=== PATIENT | male | born 1960 | race Caucasian/White ===

== ENCOUNTER 2020-08-16 06:24 | Outpatient (REF) | payer BC, SELFPAY ==
[2020-08-16 12:14] LABS: Prostate Specific Antigen 0.72 ng/mL (<0.05-4.0)
== END 2020-08-16 06:25 | disposition home or self-care (01) ==
LOC: HO.HMGCLDS 06:24
PROVIDERS: PCP Internal Medicine; Visit Provider Urology
DX: N32.0 Bladder-neck obstruction (principal)
CPT/HCPCS: 36415; 84153

== ENCOUNTER → 2020-08-22 09:03 | Outpatient (BNVA) | payer BC, SELFPAY | PROVIDERS: PCP Internal Medicine; Referring Provider Internal Medicine; Visit Provider Urology | DX: N40.1 Benign prostatic hyperplasia with lower urinary tract symptoms (principal); R35.1 Nocturia; N52.01 Erectile dysfunction due to arterial insufficiency; Z79.899 Other long term (current) drug therapy ==

== ENCOUNTER 2020-12-30 08:42 | Outpatient (REF) | payer BC, SELFPAY ==
[2020-12-30 11:11] LABS: Hemoglobin 14.6 g/dl (14.0-18.0); Mean Corpuscular HGB Conc 31.7 g/dl (31.0-36.0); Mean Corpuscular Hemoglobin 30.2 pg (27.0-33.0); Platelet Count 278 X10*3/uL (160-400); Red Blood Count 4.84 X10*6/uL (4.60-5.80); Red Cell Distribution Width 12.7 % (11.0-16.0); White Blood Count 6.8 X10*3/uL (4.8-10.8)
[2020-12-30 11:14] LABS: Glucose Urine UA NEG (NEG); Leukocyte Esterase Urine NEG (NEG); Nitrite Urine NEG (NEG); Specific Gravity - Urine 1.015 (1.005-1.025); Urine Blood NEG (NEG); Urine Ketones NEG (NEG); Urine Protein NEG (NEG-TRACE)
[2020-12-30 11:16] LABS: Appearance Urine CLEAR; Color Urine YELLOW
[2020-12-30 11:39] LABS: Alanine Aminotransferase 8 U/L (0-40); Albumin Level 4.4 g/dL (3.5-5.0); Alkaline Phosphatase 80 U/L (39-117); Anion Gap 11 (12-20); Aspartate Amino Transferase 18 U/L (5-37); Blood Urea Nitrogen 15 mg/dL (9-16); Calcium 9.3 mg/dL (8.4-10.2); Carbon Dioxide 30 mmol/L (22-29); Chloride 104 mmol/L (96-108); Cholesterol 145 mg/dL; Estimated Glomerular Filt Rate > 60; Glucose Fasting 88 mg/dL (60-99); HDL Cholesterol 56 mg/dL; LDL Cholesterol Calculated 82 mg/dl; Potassium 4.7 mmol/L (3.3-5.1); Sodium 140 mmol/L (135-145); Total Protein 6.8 g/dL (6.5-8.0); Triglycerides 39 mg/dL
== END 2020-12-30 08:43 | disposition home or self-care (01) ==
LOC: HO.HMGCLDS 08:42
PROVIDERS: PCP Internal Medicine; Visit Provider Internal Medicine
DX: I10 Essential (primary) hypertension (principal); E78.5 Hyperlipidemia, unspecified; N40.0 Benign prostatic hyperplasia without lower urinary tract symptoms; F17.210 Nicotine dependence, cigarettes, uncomplicated
CPT/HCPCS: 36415; 80053; 80061; 81003; 85027

== ENCOUNTER 2021-06-24 09:38 | Emergency (ER) | payer BC, SELFPAY ==
--- NOTE | ~2021-06-24 | XR_ITS ---
EXAMINATION: XR CHEST CLINICAL INFORMATION: Syncope. COMPARISON: None TECHNIQUE: Frontal view of the chest was obtained. FINDINGS: The lungs are well-expanded and clear. The heart size and pulmonary vascularity is normal. There is moderate spondylosis dorsal spine. No lytic process. XR/XR chest 1V IMPRESSION: Unremarkable chest examination.
--- NOTE | ~2021-06-24 | CT_ITS ---
EXAMINATION: CT HEAD WITHOUT CONTRAST CLINICAL INFORMATION: Dizziness. COMPARISON: None TECHNIQUE: Contiguous axial imaging was performed from the skull base to vertex without intravenous administration of contrast. This CT examination was performed using dose optimization techniques as appropriate, variously including the following: *Automated exposure control *Adjustment of mA and/or kV according to patient size (this includes techniques or standardized protocols for targeted exams where dose is matched to indication/reason for exam; i.e. extremities or head) *Use of iterative reconstruction technique DLP: 747 mGy-cm FINDINGS: There is no evidence of acute intracranial hemorrhage or territorial infarction. No abnormal mass effect or midline shift is seen. Owens to white matter differentiation is well preserved. No extra-axial fluid collections are identified. The ventricles are normal in size. There is no abnormal attenuation within the brain parenchyma. The osseous structures and soft tissues are normal. Diffuse partial opacification of the paranasal sinuses, likely representing chronic sinusitis. The mastoid air cells are clear. CT/CT head/brain wo con IMPRESSION: No acute intracranial hemorrhage or mass effect. Partial opacification of the paranasal sinuses, likely indicating a degree of chronic sinusitis.
--- NOTE | 2021-06-24 10:12 | ECG_ITS ---
Test Reason : DIZZINESS Blood Pressure : / mmHG Vent. Rate : 063 BPM Atrial Rate : 063 BPM P-R Int : 156 ms QRS Dur : 096 ms QT Int : 410 ms P-R-T Axes : 061 076 051 degrees QTc Int : 419 ms Normal sinus rhythm Normal ECG No previous ECGs available Referred By: Generic ED Physician Electronically Signed By:BERNADETTE RIOS MD
[2021-06-24 10:31] VITALS: BP 148/86; PULSE 63
[2021-06-24 10:32] VITALS: BP 144/84; PULSE 63
[2021-06-24 10:33] VITALS: BP 140/89; PULSE 72
[2021-06-24 11:22] VITALS: BP 128/81; PULSE 66; RESP 18; TEMP 35.5; O2SAT 99; BMI 26.6
[2021-06-24 15:46] LABS: Basophils Absolute Auto 0.1 X10*3/uL (0.0-0.2); Basophils Percent Auto 1.1 % (0-2); Eosinophils Absolute Auto 0.3 X10*3/uL (0.0-0.4); Eosinophils Percent Auto 5.2 % (0-4); Hematocrit 43.4 % (42-52); Hemoglobin 14.2 g/dl (14.0-18.0); Imm Gran Abs Auto 0.01 X10*3/uL (0.00-0.03); Imm Gran Pct Auto 0.2 % (0.0-0.4); Lymphocytes Absolute Auto 1.5 X10*3/uL (1.2-4.9); Lymphocytes Percent Auto 24.3 % (20-40); Mean Corpuscular HGB Conc 32.7 g/dl (31.0-36.0); Mean Corpuscular Hemoglobin 30.7 pg (27.0-33.0); Mean Corpuscular Volume 93.7 fL (80-98); Mean Platelet Volume 9.2 fL (9.4-12.4); Monocytes Absolute Auto 0.5 X10*3/uL (0.1-1.2); Monocytes Percent Auto 8.7 % (2-11); Neutrophils Absolute Auto 3.7 X10*3/uL (2.0-8.3); Neutrophils Percent Auto 60.5 % (45-73); Platelet Count 240 X10*3/uL (160-400); Red Blood Count 4.63 X10*6/uL (4.60-5.80); Red Cell Distribution Width 12.9 % (11.0-16.0); White Blood Count 6.1 X10*3/uL (4.8-10.8)
[2021-06-24 16:11] LABS: Troponin-I High Sensitivity < 3.5 ng/L (<3.5-35.0)
[2021-06-24 16:15] LABS: Anion Gap 9 (12-20); Blood Urea Nitrogen 9 mg/dL (9-16); Calcium 9.7 mg/dL (8.4-10.2); Carbon Dioxide 30 mmol/L (22-29); Chloride 107 mmol/L (96-108); Estimated Glomerular Filt Rate > 60; Glucose Random 97 mg/dL (60-115); Potassium 4.1 mmol/L (3.3-5.1); Sodium 142 mmol/L (135-145)
--- NOTE | 2021-06-24 16:41 | ED_ITS ---
HPI - General Adult General Chief complaint: General Medical Stated complaint: dizziness, lightheaded Time Seen by Provider: 06/24/21 16:05 Source: patient and family Mode of arrival: ambulatory Limitations: no limitations History of Present Illness HPI narrative: 61 yo Male with a past medical history of high cholesterol, high blood pressure, BPH here with complaints of dizziness since yesterday. Patient tells me that yesterday he bent down to pick something up and felt lightheaded like he was going to pass out. He sat up and felt improved. Patient then had an additional episode when he was bending down to get something in his dresser drawer and almost fell to the ground but caught himself. Today 2 more additional episodes 1 while showering and 1 while in the car. He describes dizziness as feeling lightheaded like he is going to pass out. He denies any associated chest pain, shortness of breath, neck pain, headache, fevers, chills. Patient tells me that he has not had any vomiting or diarrhea. He is tolerating p.o. with no difficulty. Related Data Previous Rx's Medication Instructions Recorded amlodipine 5 mg tablet 5 mg PO DAILY #90 tab 11/14/20 atorvastatin 20 mg tablet 20 mg PO BEDTIME #90 tab 11/14/20 benazepril 10 mg tablet 10 mg PO DAILY #90 tab 11/14/20 tamsulosin 0.4 mg capsule 0.4 mg PO DAILY 90 Days #90 cap 01/02/21 amoxicillin 875 mg-potassium 1 tab PO BID #14 tab 06/24/21 clavulanate 125 mg tablet (Augmentin) meclizine 25 mg tablet 25 mg PO TID PRN #10 tab 06/24/21 Allergies Allergy/AdvReac Type Severity Reaction Status Date / Time oxycodone [OXYCODONE] Allergy Severe SEVERE N/V Verified 12/31/20 11:32 Review of Systems Review of Systems: Yes all other systems are reviewed and are negative Constitutional: Constitutional: Reports no additional constitutional complaints, Denies body ache(s), Denies chills, Denies fever(s), Denies headache(s) and Denies weakness Eyes: Eyes: Reports no additional eye complaints and Denies change in vision ENT: Reports system reviewed and no additional complaints, except as documented, Reports dizziness, Denies headache(s), Denies nasal congestion, Denies nasal discharge and Denies neck pain Cardiovascular: Cardiovascular: Reports no additional cardiovascular complaints, Denies chest pain, Denies leg edema and Denies dyspnea Respiratory: Respiratory: Reports no additional respiratory complaints, Denies cough and Denies dyspnea Gastrointestinal: Gastrointestinal: Reports no additional gastrointestinal complaints, Denies abdominal pain, Denies diarrhea, Denies nausea and Denies vomiting Genitourinary: Genitourinary: Denies urinary incontinence Musculoskeletal: Musculoskeletal: Reports no additional musculoskeletal compla ints, Denies back pain, Denies arthralgias, Denies joint swelling, Denies neck pain, Denies numbness and Denies tingling Integumentary/Breasts: Skin/Breast: Reports system reviewed and no additional complaints, except as docu and Denies rash Neurologic: Reports system reviewed and no additional complaints, except as documented, Denies Abnormal speech present, Reports dizziness, Denies headache(s), Denies numbness, Denies tingling and Denies weakness PMFSH Past Medical History Attestation statement: The following information was validated with the patient. Source: old records reviewed and nursing notes reviewed Medical History Annual physical exam Colon polyps HTN (hypertension) Hyperlipidemia Umbilical hernia Surgical History H/O colonoscopy H/O nasal polypectomy History of tonsillectomy and adenoidectomy S/P hip replacement Family History Family History Father Leukemia Mother No problems noted. Brother No problems noted. Brother No problems noted. Sister No problems noted. Sister No problems noted. Social History Social History Household Members Other:: smokes 1/2 PPD Alcohol intake: current Alcohol intake frequency: a few times a week Advance Directives: Yes Advance Directives Information Provided: Yes Advance Directives on File: No Physical Exam Vital Signs: Vital Signs: Last Vital Signs Temp 97.6 F 06/24/21 16:49 Pulse 67 06/24/21 16:49 Resp 16 06/24/21 16:49 BP 124/82 06/24/21 16:49 Pulse Ox 98 06/24/21 16:49 Body Mass Index 26.6 Const: General: cooperative, healthy appearing, comfortable and no acute distress Orientation/consciousness: patient oriented x3 Limitations: no limitations HENMT: Head: Yes normal to inspection Ears: hearing grossly normal bilaterally General nose exam: Normal external nose present Face and sinus: Yes normal facial exam Mouth: Normal oral and palatal mucosa present Throat: Yes posterior oropharynx normal Eyes: General: appearance normal, both eyes and all related structures Pupils: Equal, round and reactive pupils present Neck: Neck: Yes normal visual inspection Chest: Chest palpation & inspection: normal inspection of the chest Resp: Effort & Inspection: normal respiratory effort Auscultation: clear to auscultation bilaterally Cardio: Rate: regular rate Rhythm: regular rhythm Peripheral pulses: Peripheral pulses 2+ throughout GI: Inspection: Yes normal to inspection Palpation (GI): Soft to palpation and nontender Auscultation: normal bowel sounds Back/Spine/Pelvis: Thoracic/Lumbar Spine: thoracic and lumbar spine normal to inspection Skin: General skin exam: no rashes or lesions noted Neuro: General: patient oriented x3, Normal light touch and pain sensation, no focal motor deficits and normal sensation to monofilament Cranial nerves: Yes CN's II-XII intact bilaterally, Yes Equal, round and reactive pupils present, Yes Bilaterally intact EOM present, Yes Nystagmus not present, Yes Normal facial strength present and Yes Midline tongue present Cognition (Neuro): normal cognition Speech: No Abnormal speech present Gait exam (Neuro): Normal gait present Motor exam (neuro): 5/5 motor strength present throughout Sensory Exam: Normal double simultaneous stimulation for sensation Deep tendon reflexes (DTR's): Right patellar reflex intensity grade: 2+ and Left patellar reflex intensity grade: 2+ Coordination: [id number] test normal, [id number] test normal and tandem gait normal Extrem: General: Yes normal to inspection, Yes no pedal edema and Yes no calf tenderness Course Course Course Narrative: 61-year-old male here with complaints of dizziness since yesterday with intermittent episodes of feeling lightheaded and weak. No other complaints. Dizziness is worsened with movement as well as movement of the head from right to left. Normal neurological exam. Hemodynamically stable. 1945-labs are unremarkable. Orthostatics show no acute finding. CT head and chest x-ray negative. EKG and troponin are unremarkable. There is concern for chronic pansinusitis on the CT scan. Patient is complainin g of some sinus pressure and pain. Will treat with course of antibiotics. Clinical exam in [facility] is more consistent with vertigo. Will send home with meclizine p.r.n... Reviewed worrisome signs and symptoms and when to return to the emergency department. Comfortable discharge home. Medical Decision Making MDM Narrative Medical decision making narrative: Less likely ICH versus CVA with normal CT scan and normal neurological exam Medical Records Medical records reviewed: Yes I reviewed the patient's medical records. Lab Data Lab results reviewed: Yes I reviewed the patient's lab results. Result diagrams: 06/24/21 15:37 06/24/21 15:37 Labs: Lab Results 06/24/21 06/24/21 06/24/21 Range/Units 15:37 15:37 15:37 WBC 6.1 (4.8-10.8) X10*3/uL RBC 4.63 (4.60-5.80) X10*6/uL Hgb 14.2 (14.0-18.0) g/dl Hct 43.4 (42-52) % MCV 93.7 (80-98) fL MCH 30.7 (27.0-33.0) pg MCHC 32.7 (31.0-36.0) g/dl RDW 12.9 (11.0-16.0) % Plt Count 240 (160-400) X10*3/uL MPV 9.2 L (9.4-12.4) fL Immature Gran % (Auto) 0.2 (0.0-0.4) % Neut % (Auto) 60.5 (45-73) % Lymph % (Auto) 24.3 (20-40) % Brewster % (Auto) 8.7 (2-11) % Eos % (Auto) 5.2 H (0-4) % Baso % (Auto) 1.1 (0-2) % Lymph # (Auto) 1.5 (1.2-4.9) X10*3/uL Brewster # (Auto) 0.5 (0.1-1.2) X10*3/uL Eos # (Auto) 0.3 (0.0-0.4) X10*3/uL Baso # (Auto) 0.1 (0.0-0.2) X10*3/uL Abs Immat Gran (auto) 0.01 (0.00-0.03) X10*3/uL Absolute Neuts (auto) 3.7 (2.0-8.3) X10*3/uL Absolute Nucleated RBC 0.000 (0.0-0.012) X10*3/uL Nucleated RBC % (auto) 0.0 (0.0-0.2) /100WBC Sodium 142 (135-145) mmol/L Potassium 4.1 (3.3-5.1) mmol/L Chloride 107 (96-108) mmol/L Carbon Dioxide 30 H (22-29) mmol/L Anion Gap 9 L (12-20) BUN 9 (9-16) mg/dL Creatinine 0.69 (0.5-1.4) mg/dL Estim Creat Clear Calc 129.0 Estimated GFR > 60 Random Glucose 97 (60-115) mg/dL Calcium 9.7 (8.4-10.2) mg/dL Magnesium 2.4 (1.6-2.6) mg/dL Total Bilirubin 1.0 (0.0-1.0) mg/dL Direct Bilirubin 0.4 (0.0-0.5) mg/dL AST 17 (5-37) U/L ALT 7 (0-40) U/L Alkaline Phosphatase 82 (39-117) U/L Troponin I High Sens < 3.5 (<3.5-35.0) ng/L Total Protein 7.2 (6.5-8.0) g/dL Albumin 4.7 (3.5-5.0) g/dL Coronavirus (PCR) (Negative) Influenza Type A (PCR) (Negative) Influenza Type B (PCR) (Negative) RSV RNA Qual (PCR) (Negative) 06/24/21 Range/Units 16:48 WBC (4.8-10.8) X10*3/uL RBC (4.60-5.80) X10*6/uL Hgb (14.0-18.0) g/dl Hct (42-52) % MCV (80-98) fL MCH (27.0-33.0) pg MCHC (31.0-36.0) g/dl RDW (11.0-16.0) % Plt Count (160-400) X10*3/uL MPV (9.4-12.4) fL Immature Gran % (Auto) (0.0-0.4) % Neut % (Auto) (45-73) % Lymph % (Auto) (20-40) % Brewster % (Auto) (2-11) % Eos % (Auto) (0-4) % Baso % (Auto) (0-2) % Lymph # (Auto) (1.2-4.9) X10*3/uL Brewster # (Auto) (0.1-1.2) X10*3/uL Eos # (Auto) (0.0-0.4) X10*3/uL Baso # (Auto) (0.0-0.2) X10*3/uL Abs Immat Gran (auto) (0.00-0.03) X10*3/uL Absolute Neuts (auto) (2.0-8.3) X10*3/uL Absolute Nucleated RBC (0.0-0.012) X10*3/uL Nucleated RBC % (auto) (0.0-0.2) /100WBC Sodium (135-145) mmol/L Potassium (3.3-5.1) mmol/L Chloride (96-108) mmol/L Carbon Dioxide (22-29) mmol/L Anion Gap (12-20) BUN (9-16) mg/dL Creatinine (0.5-1.4) mg/dL Estim Creat Clear Calc Estimated GFR Random Glucose (60-115) mg/dL Calcium (8.4-10.2) mg/dL Magnesium (1.6-2.6) mg/dL Total Bilirubin (0.0-1.0) mg/dL Direct Bilirubin (0.0-0.5) mg/dL AST (5-37) U/L ALT (0-40) U/L Alkaline Phosphatase (39-117) U/L Troponin I High Sens (<3.5-35.0) ng/L Total Protein (6.5-8.0) g/dL Albumin (3.5-5.0) g/dL Coronavirus (PCR) NEGATIVE (Negative) Influenza Type A (PCR) NEGATIVE (Negative) Influenza Type B (PCR) NEGATIVE (Negative) RSV RNA Qual (PCR) NEGATIVE (Negative) Imaging Data Chest x-ray: Attestation: I personally reviewed and interpreted this imaging study as follows: Radiologist's impression: EXAMINATION: XR CHEST CLINICAL INFORMATION: Syncope. COMPARISON: None TECHNIQUE: Frontal view of the chest was obtained. FINDINGS: The lungs are well-expanded and clear. The heart size and pulmonary vascularity is normal. There is moderate spondylosis dorsal spine. No lytic process. XR/XR chest 1V IMPRESSION: Unremarkable chest examination. ? CT scan - head: Attestation: I personally reviewed and interpreted this imaging study as follows: Radiologist's impression: FINDINGS: There is no evidence of acute intracranial hemorrhage or territorial infarction. No abnormal mass effect or midline shift is seen. Owens to white matter differentiation is well preserved. No extra-axial fluid collections are identified. The ventricles are normal in size. There is no abnormal attenuation within the brain parenchyma. The osseous structures and soft tissues are normal. Diffuse partial opacification of the paranasal sinuses, likely representing chronic sinusitis. The mastoid air cells are clear. ? CT/CT head/brain wo con IMPRESSION: No acute intracranial hemorrhage or mass effect. ? Partial opacification of the paranasal sinuses, likely indicating a degree of chronic sinusitis. ECG Data Attestation: I personally reviewed and interpreted this ECG as follows: Interpretation: Normal sinus rhythm with a rate of 63, normal GA, normal QRS, normal QT Discharge Plan Discharge Clinical Impression: Vertigo, Sinusitis Patient Disposition: Home, Self-Care Instructions: Sinusitis (ED), Vertigo (ED) Additional Instructions: This is caused by an inner ear imbalance We are giving you medications to help with the symptoms Follow-up with primary care doctor. Physical therapy may be helpful Prescriptions: New meclizine 25 mg tablet 25 mg PO TID PRN (Reason: dizziness) Qty: 10 RF: 0 amoxicillin-pot clavulanate [Augmentin] 875-125 mg tablet 1 tab PO BID Qty: 14 RF: 0 No Action atorvastatin 20 mg tablet 20 mg PO BEDTIME Qty: 90 RF: 3 amlodipine 5 mg tablet 5 mg PO DAILY Qty: 90 RF: 3 benazepril 10 mg tablet 10 mg PO DAILY Qty: 90 RF: 3 tamsulosin 0.4 mg capsule 0.4 mg PO DAILY 90 Days Qty: 90 RF: 3 Referrals: Physician,Unknown [Primary Care Provider] - 2 days Interventions: ED Discharge Assessment Last Done: 06/24/21 19:11
[2021-06-24 16:45] LABS: Alanine Aminotransferase 7 U/L (0-40); Albumin Level 4.7 g/dL (3.5-5.0); Alkaline Phosphatase 82 U/L (39-117); Aspartate Amino Transferase 17 U/L (5-37); Bilirubin Direct 0.4 mg/dL (0.0-0.5); Magnesium 2.4 mg/dL (1.6-2.6); Total Protein 7.2 g/dL (6.5-8.0)
[2021-06-24 16:49] VITALS: BP 124/82; PULSE 67; RESP 16; TEMP 36.4; O2SAT 98
--- NOTE | 2021-06-24 16:51 | PC.NURSE ---
Labs obtained. Pt awaiting brain CT at this time. Pt appears well.
[2021-06-24 17:36] LABS: Influenza A PCR NEGATIVE (Negative); Influenza B PCR NEGATIVE (Negative); Resp Syncy Virus RNA Qual PCR NEGATIVE (Negative); SARS COV2 PCR INHOUSE NEGATIVE (Negative)
== END 2021-06-24 19:11 | disposition home or self-care (01) ==
PROVIDERS: Nurse Practitioner Family; Emergency Provider Emergency Medicine Emergency Medical Services
DX: R42 Dizziness and giddiness (principal); J32.9 Chronic sinusitis, unspecified; I10 Essential (primary) hypertension; Z20.822 Contact with and (suspected) exposure to COVID-19
CPT/HCPCS: 0241U; 36415; 70450; 71045; 80048; 80076; 83735; 84484; 85025; 93005; 99284

== ENCOUNTER 2021-08-09 08:53 | Outpatient (REF) | payer BC, SELFPAY ==
[2021-08-09 10:28] LABS: Prostate Specific Antigen 0.86 ng/mL (<0.05-4.0)
== END 2021-08-09 08:54 | disposition home or self-care (01) ==
LOC: HO.LAB 08:53
PROVIDERS: PCP Internal Medicine; Visit Provider Urology
DX: Z12.5 Encounter for screening for malignant neoplasm of prostate (principal); N40.1 Benign prostatic hyperplasia with lower urinary tract symptoms; R35.1 Nocturia
CPT/HCPCS: 36415; 84153

== ENCOUNTER → 2021-08-19 08:47 | Outpatient (BNVA) | payer BC, SELFPAY | PROVIDERS: Visit Provider Urology | DX: N40.1 Benign prostatic hyperplasia with lower urinary tract symptoms (principal); R35.1 Nocturia; N52.01 Erectile dysfunction due to arterial insufficiency ==

== ENCOUNTER 2021-12-26 05:59 | Outpatient (REF) | payer BC, SELFPAY ==
[2021-12-26 11:27] LABS: Hematocrit 45.5 % (42.0-52.0); Hemoglobin 14.3 g/dl (14.0-18.0); Mean Corpuscular HGB Conc 31.4 g/dl (31.0-36.0); Mean Corpuscular Hemoglobin 29.8 pg (27.0-33.0); Mean Corpuscular Volume 94.8 fL (80.0-98.0); Mean Platelet Volume 9.9 fL (9.4-12.4); Platelet Count 258 X10*3/uL (160-400); Red Cell Distribution Width 12.7 % (11.0-16.0); White Blood Count 4.9 X10*3/uL (4.8-10.8)
[2021-12-26 11:42] LABS: Appearance Urine CLEAR; Color Urine YELLOW; Glucose Urine UA NEG (NEG); Leukocyte Esterase Urine NEG (NEG); Nitrite Urine NEG (NEG); Specific Gravity - Urine 1.015 (1.005-1.025); Urine Blood NEG (NEG); Urine Ketones NEG (NEG); Urine Protein NEG (NEG-TRACE)
[2021-12-26 11:51] LABS: Alanine Aminotransferase 7 U/L (0-40); Albumin Level 4.4 g/dL (3.5-5.0); Alkaline Phosphatase 78 U/L (39-117); Anion Gap 13 (12-20); Aspartate Amino Transferase 21 U/L (5-37); Bilirubin Total 0.9 mg/dL (0.0-1.0); Blood Urea Nitrogen 10 mg/dL (9-16); Calcium 9.7 mg/dL (8.4-10.2); Carbon Dioxide 28 mmol/L (22-29); Chloride 104 mmol/L (96-108); Cholesterol 145 mg/dL; Estimated Glomerular Filt Rate > 60; Glucose Fasting 106 mg/dL (60-99); HDL Cholesterol 49 mg/dL; LDL Cholesterol Calculated 82 mg/dl; Potassium 4.7 mmol/L (3.3-5.1); Sodium 140 mmol/L (135-145); Triglycerides 71 mg/dL
[2021-12-26 12:15] LABS: WBC Urine 0-2 /HPF (0-4)
[2021-12-26 12:16] LABS: RBC Urine 0 /HPF (0)
== END 2021-12-26 06:00 | disposition home or self-care (01) ==
LOC: HO.HMGCLDS 05:59
PROVIDERS: Visit Provider Internal Medicine
DX: Z00.00 Encounter for general adult medical examination without abnormal findings (principal); I10 Essential (primary) hypertension; E78.5 Hyperlipidemia, unspecified
CPT/HCPCS: 36415; 80053; 80061; 81001; 85027

== ENCOUNTER 2022-03-06 15:34 | Outpatient (REF) | payer BC, SELFPAY ==
--- NOTE | ~2022-03-06 | CT_ITS ---
EXAMINATION: CT CHEST SCREENING CLINICAL INFORMATION: 40 yr pack smoking history. COMPARISON: Chest x-ray 06/24/2021 TECHNIQUE: Multidetector volumetric CT imaging of the chest is performed without contrast using low dose technique. Additional 2D coronal and sagittal reformatted images and axial 3D maximum intensity projection (MIP) images are generated on the CT workstation. This CT examination was performed using dose optimization techniques as appropriate, variously including the following: *Automated exposure control *Adjustment of mA and/or kV according to patient size (this includes techniques or standardized protocols for targeted exams where dose is matched to indication/reason for exam; i.e. extremities or head) *Use of iterative reconstruction technique DLP: 66 mGy-cm FINDINGS: LUNGS: The lungs are hyperinflated without acute pneumonic consolidation. There is a large right parahilar nodule lower lobe measuring 2.1 x 1.9 cm on axial image 226/6. There are 2 mm subpleural nodules or densities in left lower lobe axial image 226/6, right lower lobe anterolateral basal segment image 268/6, 4 mm right major fissure nodule likely lymph node axial image 253/6, 2 mm nodule right upper lobe axial image 142/6,. MEDIASTINUM: The thyroid lobes are asymmetrical but otherwise normal. The central trachea and the bronchi are normal. The heart size is normal. There is aneurysmal dilatation of ascending aorta measuring 4.9 x 4.8 cm axial image 35/3. There is moderate coronary artery calcifications. No abnormal size mediastinal lymph nodes are stable mass seen. No pericardial effusion. PLEURA: There is no pleural effusion. No pleural mass or thickening. AXILLA: Small shotty lymph nodes in the left axilla measuring 1.2 x 0.4 cm UPPER ABDOMEN: Visualized liver, spleen and gallbladder is unremarkable. OSSEOUS STRUCTURES: Bone windows reveal moderate ventral spondylosis and bridging osteophytes dorsal spine. No lytic or sclerotic process seen. CT/CT lung screening IMPRESSION: Hyperinflated lungs with very suspicious right lower lobe nodule measuring 2.1 cm. Recommend PET/CT and a follow-up CT chest in 3 months. There are additional small subpleural 2 nodules. No abnormal mediastinal adenopathy seen. Results were called by PSA to the referring physician at 9:04 AM on 03/09/2022. ASSESSMENT: Lung-RADS category 4A RECOMMENDATION: PET/CT and low dose [address] follow-up
== END 2022-03-06 15:35 | disposition home or self-care (01) ==
LOC: HO.CT 15:34
PROVIDERS: Visit Provider Physician Assistant Medical
DX: Z12.2 Encounter for screening for malignant neoplasm of respiratory organs (principal); F17.210 Nicotine dependence, cigarettes, uncomplicated
CPT/HCPCS: 71271; G0296

== ENCOUNTER 2022-03-18 09:34 | Day surgery (SDC) | payer BC, SELFPAY ==
--- NOTE | 2022-03-17 09:37 | P.CONAN_ITS ---
Documented by User: Radha Rivera NP 03/17/22 09:39 HPI - Anesthesia Eval Consult details Narrative: 62yo M for Bronchoscopy Fiberoptic PMFSH Active Problems Active Problems: All Active Problems (Updated 03/06/22 @ 12:19 by Carmelita Baeza PA-C) Personal history of nicotine dependence (Acute) HTN (hypertension) (Acute) Hyperlipidemia (Acute) Erectile dysfunction due to arterial insufficiency (Acute) BPH associated with nocturia (Acute) Glaucoma (Acute) Left shoulder tendinitis (Acute) Past Medical History Medical History Glaucoma HTN (hypertension) Hyperlipidemia Left shoulder tendinitis Personal history of nicotine dependence Tubular adenoma of colon (~2018) Umbilical hernia Family History Family History Father Leukemia Mother No problems noted. Brother No problems noted. Brother No problems noted. Sister No problems noted. Sister No problems noted. Surgical History Surgical History History of colonoscopy (~2019) History of left hip replacement (~2015) History of nasal polypectomy (~2005) History of tonsillectomy and adenoidectomy Social History Social History Household Members Other:: smokes 1/2 PPD [facility] Alcohol intake: current Alcohol intake frequency: a few times a week Patient Tobacco Use Status: Current someday Tobacco user Tobacco use type: Cigarette Cigarettes Per Day: 10 Years Smoked: 40 Smoked in Last 30 Days: Yes e-Cigarette/Vaping Use: Never Used Use of substances other than those prescribed or required for medical reasons: No Are you DNR?: No Advance Directives: No Advance Directives Information Provided: Yes service: No Current occupational status: employed Current occupational exposures/hazards: No Cognitive needs: No Hearing needs: No Vision needs: No Meds Allergies Allergy/AdvReac Type Severity Reaction Status Date / Time oxycodone [OXYCODONE] Allergy Severe SEVERE N/V Verified 01/05/22 08:23 Exam Exam Date and Time: March 17, 2022 0937 Pertinent Lab Results Pertinent Lab Results: Laboratory Tests 12/26/21 12/26/21 06:03 06:03 WBC 4.9 Hgb 14.3 Hct 45.5 Plt Count 258 Sodium 140 Potassium 4.7 Chloride 104 Carbon Dioxide 28 BUN 10 Creatinine 0.72 Assessment and Plan Assessment Anesthesia Assessment: Chart Reviewed Documented by User: Jesica Barber MD 03/18/22 10:59 [facility] Past Medical History Medical History Glaucoma HTN (hypertension) Hyperlipidemia Left shoulder tendinitis Personal history of nicotine dependence Tubular adenoma of colon (~2018) Umbilical hernia Family History Family History Father Leukemia Mother No problems noted. Brother No problems noted. Brother No problems noted. Sister No problems noted. Sister No problems noted. Surgical History Surgical History History of colonoscopy (~2019) History of left hip replacement (~2015) History of nasal polypectomy (~2005) History of tonsillectomy and adenoidectomy History of Problems with Anesthesia: No Social History Social History Household Members Other:: smokes 1/2 PPD Housing: Condominium Alcohol intake: current Alcohol intake frequency: a few times a week Patient Tobacco Use Status: Current someday Tobacco user Tobacco use type: Cigarette Cigarettes Per Day: 10 Years Smoked: 40 Smoked in Last 30 Days: Yes e-Cigarette/Vaping Use: Never Used Use of substances other than those prescribed or required for medical reasons: No Are you DNR?: No Advance Directives: No Advance Directives Information Provided: Yes service: No Current occupational status: employed Current occupational exposures/hazards: No Cognitive needs: No Hearing needs: No Vision needs: No Meds Allergies Allergy/AdvReac Type Severity Reaction Status Date / Time oxycodone [OXYCODONE] Allergy Severe SEVERE N/V Verified 01/05/22 08:23 Exam Airway Mallampati Class: II TM Dist: >3cm Neck ROM: Full Loose/Missing/Broken Teeth: No Heart: RRR Lungs: CTA Assessment and Plan Assessment Anesthesia Assessment: Anesthesia Plan Discussed Final Anesthetic Review History of Problems with Anesthesia: No NPO: Yes ASA Class: II Final Preanesthetic Review: Meds/Allgs Chart Reviewed, Consent Obtained/Reviewed and Anes Risks/Benef Reviewed Patient Risk: Low Procedure Risk: Low Anesthetic Plan Anesthetic Plan: GA Disposition: Standard PACU
--- NOTE | ~2022-03-18 | XR_ITS ---
EXAMINATION: XR CHEST CLINICAL INFORMATION: Lung biopsies. COMPARISON: Chest radiograph dated 06/24/2021, chest CT dated 03/06/2022. TECHNIQUE: Frontal view of the chest was obtained. FINDINGS: An ovoid nodule overlies the right perihilar region with adjacent linear opacity. The right upper lung field and left lung are clear. No overt pneumothorax. The heart and mediastinal structures are unremarkable. XR/XR chest 1V IMPRESSION: Known right lung nodule with probable adjacent atelectasis/scarring status post biopsy. No overt pneumothorax.
[2022-03-18 10:29] VITALS: BP 111/72; PULSE 63; RESP 16; TEMP 37; O2SAT 98; BMI 26.6
[2022-03-18] MEDS: Lactated Ringers 1,000 ML 100 ML IVCONT (11:01)
--- NOTE | 2022-03-18 11:25 | MHC.SHP ---
Pre-Procedural Eval Section A Date of Service: 03/18/22 Changes since office visit: No Cold of Flu in the past 2 weeks, No New Medical Problems, No Changes in Medication and No Patient answered all questions Section B Chief Complaint: pulmonary nodule Details of Present Illness: 62 y/o man with tob dependedncy asymptomatic. HAd LDCT scan demonstrating RLL nodule. Here for bronchoscopy Relevant Family History (Specify if Yes): Yes Relevant Social History: Tobacco Use Present Medications: see Short Stay Collaborative assessment Medical History: No relevant PMH Allergies: Allergies Allergy/AdvReac Type Severity Reaction Status Date / Time oxycodone [OXYCODONE] Allergy Severe SEVERE N/V Verified 01/05/22 08:23 Review of Systems Sugical H&P ROS: Negative: Constitution, Cardiovascular, Respiratory, Neurological, Psychiatric, Hem-Onc, Allergic/Immunologic, Gastrointestinal, Genitourinary, Musculoskeletal, Integumentary and Endocrine Exam Surgical H&P Exam: Normal: HEENT, Normal: Heart, Normal: Lungs, Normal: Extremities, Normal: Abdomen, Normal: Skin and Normal: Neurological Plan Diagnosis/Plan: Change (pulmonary nodule, plan for bronchoscopy) I have reviewed the history and physical and performed a pertinent physical examination on my patient. No changes have occurred unless specified.
[2022-03-18 12:49] VITALS: BP 110/60; PULSE 77; RESP 16; TEMP 36.2; O2SAT 98
[2022-03-18 12:54] VITALS: BP 115/63; PULSE 78; RESP 18; O2SAT 98
[2022-03-18 12:59] VITALS: BP 108/65; PULSE 64; RESP 18; O2SAT 98
[2022-03-18 13:04] VITALS: BP 114/64; PULSE 73; RESP 18; O2SAT 98
[2022-03-18 13:15] VITALS: BP 109/66; PULSE 66; RESP 18; O2SAT 96
--- NOTE | 2022-03-19 08:25 | P.BOP_ITS ---
Brief Operative Note Date of Service: 03/19/22 Pre-op diagnosis: pulmonary nodule Post-op diagnosis: same Procedure: Bronchoscopy with transbronchial biopsies and brushings and washings Implants: Surgeon: Nam Wyatt MD Anesthesia: GETA Was an Quick Print Operator used for this Procedure?: No Estimated blood loss (mL): 1 Pathology: other (RLL transbronchial biopsies) Condition: stable Disposition: same day
--- NOTE | 2022-03-19 20:31 | OP_ITS ---
SURGEON: Nam Wyatt MD PREOPERATIVE DIAGNOSIS: Pulmonary nodule. POSTOPERATIVE DIAGNOSIS: Pulmonary nodule in addition to bronchitis. PROCEDURE PERFORMED: Bronchoscopy. ESTIMATED BLOOD LOSS: COMPLICATIONS: ANESTHESIA: General endotracheal anesthesia provided. ASSISTANTS: SPECIMENS: DESCRIPTION OF PROCEDURE: After the patient was adequately sedated, a flexible digital bronchoscope was inserted over ET tube to level of the trachea. Tracheal mucosa appeared to be normal. Normal splaying of the main adarsh. The patient did have moderate amount of mucoid secretions. After instilling 3 mL of 2% lidocaine, the bronchoscope was navigated through the entire tracheobronchial tree, which was examined up to the subsegmental level. The patient had evidence of chronic airway disease with diverticula, likely from his ongoing smoking, and has significant mucus plugging with yellowish mucoid secretions that were plugging some of the airways, primarily at the bases. Some evidence of bronchomalacia was also noted in the superior segment of the right lower lobe. There was a vascular looking area, smooth surfaces, which appears to correspond to the findings on the CAT scan. Using a brush, it was introduced into the area and when the brushing was happening, serosanguineous fluid did come out of the area, almost like emptying of a cyst or a small abscess. The cytology brush was sent to the Cytology Department. Normal saline and iced saline were used for hemostasis. Due to the vascular nature of the lesion, a half ampule of epinephrine was introduced, mixed in with saline into the superior segment, and then after that, transbronchial biopsies were collected from the site and sent to Pathology. Multiple specimens were collected. The patient did have some additional bleeding, minimal, and the rest of the epinephrine ampule was used for a total of 1 ampule for the whole procedure, and again iced saline was also used for hemostasis as well. At the end of procedure, patient was no longer bleeding. The bronchoscope was then removed. The total endoscopic time approximately about 25 minutes. Patient tolerated procedure well. Vital signs were stable throughout the procedure and he did have a chest x-ray afterwards that was without any pneumothoraces. IMPRESSION: 1. Transbronchial biopsies from the right lower lobe pulmonary nodule. 2. Cytologic brush into the right lower lobe, superior segment. 3. Bilateral lung washings for Cytology, Gram stain, culture, and for chest x-ray are without any complications. Nam Wyatt MD MR/NATALEE / [id number]
== END 2022-03-18 13:12 | disposition home or self-care (01) ==
PROVIDERS: PCP Internal Medicine; Visit Provider Hospitalist
PROC: 0BJ08ZZ Inspection of Tracheobronchial Tree, Via Natural or Artificial Opening Endoscopic (ICD-10-PCS; CPT 31622; principal; 2022-03-18 11:30)
DX: R91.1 Solitary pulmonary nodule (principal); J40 Bronchitis, not specified as acute or chronic; J98.09 Other diseases of bronchus, not elsewhere classified; I10 Essential (primary) hypertension; E78.5 Hyperlipidemia, unspecified; F17.210 Nicotine dependence, cigarettes, uncomplicated; F12.90 Cannabis use, unspecified, uncomplicated; Z96.642 Presence of left artificial hip joint; Z98.890 Other specified postprocedural states
CPT/HCPCS: 31628; 31623; 71045; 87071; 87205; 88112; 88305; 88341; 88342; 88360; J0171; J1100; J2250; J2405; J3010

== ENCOUNTER 2022-04-01 09:52 | Outpatient (REF) | payer BC, SELFPAY ==
--- NOTE | 2022-04-01 17:25 | PFT_ITS ---
INDICATION: Pulmonary nodule. SPIROMETRY: FEV1 to FVC 79% with an FEV1 of 4.6 L, which is 114% predicted and FVC of 5.8 L, which is 108% predicted. No significant response to bronchodilators noted. Maximum voluntary ventilation 95% predicted. LUNG VOLUMES: Total lung capacity 103% predicted. DIFFUSION CAPACITY: DLCO 87% predicted. COMPARISONS: None. Flow volume loop was perfect. Normal lung mechanics. INTERPRETATION: No obstructive nor restrictive ventilatory defects identified. No significant response to bronchodilators noted. Normal maximum voluntary ventilation. Normal lung volumes and normal diffusion capacity. This is consistent with normal lung mechanics. Clinical correlation warranted. Nam Wyatt MD MR/MODL / [id number]
== END 2022-04-01 09:53 | disposition home or self-care (01) ==
LOC: HO.RESP 09:52
PROVIDERS: PCP Internal Medicine; Visit Provider Surgery
DX: Z01.818 Encounter for other preprocedural examination (principal); R91.8 Other nonspecific abnormal finding of lung field; F17.200 Nicotine dependence, unspecified, uncomplicated
CPT/HCPCS: 94060; 94727; 94729

== ENCOUNTER → 2022-04-03 09:13 | Outpatient (BNVA) | payer BC, SELFPAY | PROVIDERS: PCP Internal Medicine; Visit Provider Surgery | DX: R91.1 Solitary pulmonary nodule (principal); D3A.090 Benign carcinoid tumor of the bronchus and lung; Z87.891 Personal history of nicotine dependence | CPT/HCPCS: 99202 ==

== ENCOUNTER 2022-08-08 09:19 | Outpatient (REF) | payer BC, SELFPAY ==
[2022-08-08 10:34] LABS: Prostate Specific Antigen 0.75 ng/mL (<0.05-4.0)
== END 2022-08-08 09:20 | disposition home or self-care (01) ==
LOC: HO.LAB 09:19
PROVIDERS: PCP Internal Medicine; Visit Provider Urology
DX: N40.1 Benign prostatic hyperplasia with lower urinary tract symptoms (principal); R35.1 Nocturia; Z12.5 Encounter for screening for malignant neoplasm of prostate
CPT/HCPCS: 36415; 84153

== ENCOUNTER 2022-11-03 07:21 | Outpatient (REF) | payer BC, SELFPAY ==
--- NOTE | ~2022-11-03 | CT_ITS ---
EXAMINATION: CT CHEST WITHOUT CONTRAST CLINICAL INFORMATION: Benign carcinoid tumor of the bronchus and lung. COMPARISON: 03/06/2022 TECHNIQUE: Multidetector volumetric CT imaging of the chest was done. Axial MIP volume rendering provided. Sagittal and coronal reformatted images were obtained. This CT examination was performed using dose optimization techniques as appropriate, variously including the following: *Automated exposure control *Adjustment of mA and/or kV according to patient size (this includes techniques or standardized protocols for targeted exams where dose is matched to indication/reason for exam; i.e. extremities or head) *Use of iterative reconstruction technique DLP: 217 mGy-cm FINDINGS: LUNGS: The central airways are patent with minimal internal secretions. Postsurgical changes of the bronchus intermedius with some narrowing at that location and suture line seen. The appearance suggests right lower lobectomy. Mild paraseptal and centrilobular emphysema with apical predominance. Mild subpleural reticulation present. No honeycombing. No pneumothorax. The previous right lower lobe nodule has been resected. Subpleural 0.2 cm left lower lobe nodule on series 7 image 301 is unchanged. No new pulmonary nodules. MEDIASTINUM: Normal heart size. No pericardial effusion. No mediastinal lymphadenopathy. The visualized thyroid gland is unremarkable CORONARY ARTERY CALCIFICATION: Severe . PLEURA: There is no pleural effusion. Right basilar pleural thickening.. AXILLA: No lymphadenopathy. UPPER ABDOMEN: No suspicious findings. Simple cyst anteriorly in the left hepatic lobe. OSSEOUS STRUCTURES: No acute or suspicious osseous abnormality. Diffuse endplate osteophytes, some of which are bridging. CT/CT chest wo IV con IMPRESSION: Postsurgical changes of right lower lobectomy. No suspicious pulmonary nodules. Mild emphysema. Fleischner guidelines were followed.
== END 2022-11-03 07:22 | disposition home or self-care (01) ==
LOC: HO.CT 07:21
PROVIDERS: PCP Internal Medicine; Visit Provider Surgery
DX: D3A.090 Benign carcinoid tumor of the bronchus and lung (principal)
CPT/HCPCS: 71250

== ENCOUNTER → 2022-11-27 09:38 | Outpatient (BNVA) | payer BC, SELFPAY | PROVIDERS: PCP Internal Medicine; Visit Provider Surgery | DX: D3A.090 Benign carcinoid tumor of the bronchus and lung (principal) | CPT/HCPCS: 99212 ==

== ENCOUNTER 2022-12-30 06:04 | Outpatient (REF) | payer BC, SELFPAY ==
[2022-12-30 11:30] LABS: Appearance Urine Clear; Color Urine Yellow; Glucose Urine UA Negative (Negative); Leukocyte Esterase Urine Negative (Negative); Nitrite Urine Negative (Negative); Urine Blood Negative (Negative); Urine Ketones Negative (Negative); Urine Protein Negative (Neg-Trace)
[2022-12-30 11:34] LABS: Bacteria Urine None Seen (None Seen); Hyaline Casts Urine 0-2 /LPF (0-2); RBC Urine 0-2 /HPF (0-2); Squamous Epithelial Cell Urine 0-2 /HPF (0-2); WBC Urine 0-5 /HPF (0-5)
[2022-12-30 12:01] LABS: Alanine Aminotransferase 10 U/L (0-40); Albumin Level 4.4 g/dL (3.5-5.0); Alkaline Phosphatase 82 U/L (39-117); Anion Gap 10 (12-20); Aspartate Amino Transferase 20 U/L (5-37); Bilirubin Total 0.7 mg/dL (0.0-1.0); Blood Urea Nitrogen 12 mg/dL (9-16); Carbon Dioxide 27 mmol/L (22-29); Chloride 106 mmol/L (96-108); Cholesterol 161 mg/dL; Estimated Glomerular Filt Rate > 60; Glucose Fasting 99 mg/dL (60-99); HDL Cholesterol 46 mg/dL; LDL Cholesterol Calculated 100 mg/dl; Potassium 4.2 mmol/L (3.3-5.1); Sodium 139 mmol/L (135-145); Total Protein 6.6 g/dL (6.5-8.0); Triglycerides 76 mg/dL
[2022-12-30 12:10] LABS: Hemoglobin 14.1 g/dl (14.0-18.0); Mean Corpuscular HGB Conc 31.3 g/dl (31.0-36.0); Mean Corpuscular Hemoglobin 29.4 pg (27.0-33.0); Mean Corpuscular Volume 93.8 fL (80.0-98.0); Mean Platelet Volume 9.4 fL (9.4-12.4); Platelet Count 279 X10*3/uL (160-400); Red Cell Distribution Width 12.7 % (11.0-16.0); White Blood Count 4.7 X10*3/uL (4.8-10.8)
== END 2022-12-30 06:05 | disposition home or self-care (01) ==
LOC: HO.HMGCLDS 06:04
PROVIDERS: Visit Provider Internal Medicine
DX: Z00.00 Encounter for general adult medical examination without abnormal findings (principal); I10 Essential (primary) hypertension
CPT/HCPCS: 36415; 80053; 80061; 81001; 85027

== ENCOUNTER → 2023-03-02 08:18 | Outpatient (BNVA) | payer BC, SELFPAY | PROVIDERS: PCP Internal Medicine; Visit Provider Nurse Practitioner Family | DX: Z13.89 Encounter for screening for other disorder (principal) ==

== ENCOUNTER 2023-06-14 13:45 | Outpatient (REF) | payer BC, SELFPAY ==
--- NOTE | ~2023-06-14 | CT_ITS ---
EXAMINATION: CT CHEST WITHOUT CONTRAST CLINICAL INFORMATION: History of benign carcinoid tumor. COMPARISON: CT chest 11/03/2022. TECHNIQUE: Multidetector volumetric CT imaging of the chest was done. Axial MIP volume rendering provided. Sagittal and coronal reformatted images were obtained. This CT examination was performed using dose optimization techniques as appropriate, variously including the following: *Automated exposure control *Adjustment of mA and/or kV according to patient size (this includes techniques or standardized protocols for targeted exams where dose is matched to indication/reason for exam; i.e. extremities or head) *Use of iterative reconstruction technique DLP: 196 mGy-cm FINDINGS: LUNGS: Stable postsurgical changes from right lower lobectomy with similar architectural distortion in the postoperative margin without new nodularities. Minimal subpleural reticulation in the anterior upper lungs is unchanged. No focal consolidation or significant ground-glass disease. The central airways are patent. Mild emphysematous changes. A few sub-3 mm pulmonary nodules are stable, for example a 3 mm pleural-based solid nodule in the left lower lobe image 259 series 5, a 0.2 cm solid nodule in the left lower lobe axial image 387 series 5 and a micronodule in the left upper lobe axial image 206 series 5. A few very small calcified granulomas are seen. No new or enlarging pulmonary nodule. MEDIASTINUM: Normal heart size. No pericardial effusion. Subcentimeter short axis mediastinal lymph nodes are not significantly changed. Evaluation of the hilar structures, including hilar lymphadenopathy, is limited in the absence of IV contrast. Normal appearance of the thyroid gland. CORONARY ARTERY CALCIFICATION: Significant coronary artery calcifications. PLEURA: No pleural effusion or pneumothorax. AXILLA: No axillary lymphadenopathy. UPPER ABDOMEN: Stable simple cyst in the left hepatic lobe axial image 61 and additional too small to characterize hypodensity in the superior left hepatic lobe axial image 52, series 3. OSSEOUS STRUCTURES: No acute or aggressive appearing osseous abnormalities. Degenerative changes of the thoracic spine. Chronic left anterior sixth rib fracture with callus formation. Nonaggressive-appearing sclerotic focus in the upper sternum axial image 145 series 503, unchanged favoring to represent a bone island. CT/CT chest wo IV con IMPRESSION: 1. Stable postsurgical changes from right lower lobectomy. 2. Sub-3 mm pulmonary nodules are stable. 3. No new or enlarging pulmonary nodule. Recommend continued followup according to oncology guidelines in this patient with history of benign carcinoid.
== END 2023-06-14 13:46 | disposition home or self-care (01) ==
LOC: HO.CT 13:45
PROVIDERS: PCP Internal Medicine; Visit Provider Surgery
DX: D3A.090 Benign carcinoid tumor of the bronchus and lung (principal)
CPT/HCPCS: 71250

== ENCOUNTER 2023-06-18 09:14 | Outpatient (AMB) | payer BC, SELFPAY ==
--- NOTE | 2023-06-18 09:41 | MHC.OFFVIS ---
Intake Vital Signs 06/18/23 09:51 Height 6 ft 2 in Weight 228 lb BMI 29.3 BP 120/80 Blood Pressure Location Lt brachial Position Sitting Pulse 79 Pulse Oximetry (%) 98 Intake Visit Reasons: 6 month follow up with Chest CT Allergies oxycodone [OXYCODONE] Allergy (Severe, Verified 06/18/23 09:53) SEVERE N/V Medication List - Last Reconciled 06/19/23 by Aretha Carbone MD amlodipine 5 mg PO DAILY atorvastatin 20 mg PO BEDTIME benazepril 10 mg PO DAILY meclizine 25 mg PO TID PRN tamsulosin 0.4 mg PO DAILY 90 days HPI 6 month follow up with Chest CT HPI Details 62-year-old male who underwent a Davinci right lower lobectomy on 04/20/2022.? He recovered from that operation quite well.? 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 His 1st six-month follow-up CT scan of the chest was done on 11/03/2022 which was reviewed and interpreted by me directly showing no evidence of recurrence or new disease.? There is no pleural fluid in there is no mediastinal lymphadenopathy.As per protocol, a second surveillance CT scan of the chest 6 months later was done on 06/14/2023. This was not read by the radiologist but read and interpreted by me directly at this visit. There is no evidence of recurrence or new disease. There is no lymphadenopathy and no pleural fluid. 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 He denies cough or hemoptysis.? He denies unintentional weight loss.? He denies fevers or chills.? He denies any new neurologic symptoms.? He denies any flushing or diarrhea.? Other than above, 12 point review of systems was done and documented separately in the office chart with detailed social and family history. ?He has stopped smoking but says that he has gained weight since being able to do that. [facility] Medical History Carcinoid tumor of lung (~2021) Glaucoma HTN (hypertension) Hyperlipidemia Left shoulder tendinitis Personal history of nicotine dependence Tubular adenoma of colon (~2018) Umbilical hernia Surgical History History of bronchoscopy (~2021) History of colonoscopy (~2019) History of left hip replacement (~2015) History of lobectomy of lung (~2021) History of nasal polypectomy (~2005) History of tonsillectomy and adenoidectomy Family History Father Leukemia Mother No problems noted. Brother No problems noted. Brother No problems noted. Sister No problems noted. Sister No problems noted. Social History Household Members Other:: smokes 1/2 [facility]PD [facility] Alcohol intake: current Alcohol intake frequency: a few times a week Patient Tobacco Use Status: Former Tobacco user Quit Date: 04/20/2022 Tobacco use type: Cigarette Cigarette Packs Per Day: 0.5 Cigarettes Per Day: 10 Years Smoked: 40 e-Cigarette/Vaping Use: Never Used service: No Current occupational status: employed Current occupational exposures/hazards: No Cognitive needs: No Hearing needs: No Vision needs: Yes Physical Exam Vital Signs: Last Vital Signs Pulse 79 06/18/23 09:51 BP 120/80 06/18/23 09:51 Pulse Ox 98 06/18/23 09:51 BMI result Body Mass Index 29.3 nad rrr ctab abd soft nl bs wounds all well healed Assessment & Plan Assessment & Plan (1) Carcinoid tumor of lung: Onset Date: ~2021 Comment: (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) Code(s): D3A.090 - Benign carcinoid tumor of the bronchus and lung Plan: I discussed with him the findings on his CAT scan which show no evidence of recurrence or new disease. His clinical exam and review of systems do not suggest any evidence of recurrence or new disease either. I discussed with him the surveillance protocol for carcinoid tumors in the lung which is a CAT scan every 6 months for the first 2 years postoperatively and then yearly for 8 years after that. This is done for a longer period as I explained to him then standard lung cancer because carcinoids tend to be more slow-moving and can pop up at later times. He will have a visit after each CAT scan and we will follow this protocol mass or any new changes. All questions were answered. Orders: Orders CT chest wo IV con 6 Months D3A.090 - Benign carcinoid tumor of the bronchus and lung Coding Level of Care Code Est Pt Level 4 (67941) Diagnoses Carcinoid tumor of lung D3A.090
[2023-06-18 09:51] VITALS: BP 120/80; PULSE 79; O2SAT 98; BMI 29.3
== END 2023-06-18 10:04 | disposition home or self-care (01) ==
PROVIDERS: PCP Internal Medicine; Visit Provider Surgery
DX: D3A.090 Benign carcinoid tumor of the bronchus and lung (principal)

== ENCOUNTER → 2023-06-18 09:14 | Outpatient (BNVA) | payer BC, SELFPAY | PROVIDERS: Visit Provider Surgery | DX: D3A.090 Benign carcinoid tumor of the bronchus and lung (principal); R06.02 Shortness of breath; Z87.891 Personal history of nicotine dependence; Z90.2 Acquired absence of lung [part of] | CPT/HCPCS: 99212 ==

== ENCOUNTER 2023-08-19 11:21 | Outpatient (AMB) | payer BC, SELFPAY ==
--- NOTE | 2023-08-19 11:26 | MHC.OFFVIS ---
Intake Intake Visit Reasons: 1Y PVR(Erectile Dys/BPH) Intake Note: Patient is present for PVR/ED Follow Up Current Medication: Tamsulosin Blood Thinners: none PVR:0 Chemical Librarian Required: No Accompanied by: Self / Same As Patient Allergies oxycodone [OXYCODONE] Allergy (Severe, Verified 08/19/23 11:39) SEVERE N/V HPI HPI Comments History of Present Illness Details Abel is a very pleasant male. He is a patient Dr. Rae. He is seen for following urologic conditions - lower urinary tract symptoms - erectile dysfunction Yearly review. PVR 0. Continue with tamsulosin Situational ED Has issues when not enough sleep Lower urinary tract symptoms ? Current visit is for further evaluation of, lower urinary tract symptoms, predominate obstructive symptoms. ? Current treatment includes? medication - tamsulosin ? Prostate Symptom Score 2/18 , Moderate (9-19), Moderate (9-19) ?3/18 , Mild (0-8), Bother 2. ? Symptoms include 2/ , incomplete emptying, weak stream, nocturia (>2), and are progressing ?3 , incomplete emptying, weak stream, and are improving - longer time to urinate. ? PSA 08/03 0.9, 08/05 0.9, 08/06 0.8 ? Prostate volume 30-50gm. ? Testing at next visit will include bladder scan?? [facility] Medical History Carcinoid tumor of lung (~2021) Personal history of nicotine dependence Tubular adenoma of colon (~2018) Glaucoma Left shoulder tendinitis Umbilical hernia Hyperlipidemia HTN (hypertension) Surgical History History of lobectomy of lung (~2021) History of bronchoscopy (~2021) History of left hip replacement (~2015) History of nasal polypectomy (~2005) History of colonoscopy (~2019) History of tonsillectomy and adenoidectomy Family History Father Leukemia Mother No problems noted. Brother No problems noted. Brother No problems noted. Sister No problems noted. Sister No problems noted. Social History Household Members Other:: smokes 1/2 [facility] Alcohol intake: current Alcohol intake frequency: a few times a week Patient Tobacco Use Status: Former Tobacco user Quit Date: 04/20/2022 Tobacco use type: Cigarette Cigarette Packs Per Day: 0.5 Cigarettes Per Day: 10 Years Smoked: 40 e-Cigarette/Vaping Use: Never Used service: No Current occupational status: employed Current occupational exposures/hazards: No Cognitive needs: No Hearing needs: No Vision needs: Yes Review of Systems Const Denies chills and Denies fever(s) Card Reports no additional complaints and Denies syncope Resp Denies cough GI Denies abdominal pain and Denies heartburn Reports as per HPI and Denies change in libido Neuro Denies syncope Psych Denies change in libido Endo Denies change in libido Physical Exam Const General: cooperative, healthy appearing, comfortable and no acute distress Orientation/consciousness: patient oriented x3 HEENT Face and sinus: Yes normal facial exam Mouth: moist mucous membranes Neck Neck: Yes normal visual inspection, Yes full ROM and Yes trachea midline Chest Chest palpation & inspection: normal inspection of the chest Resp Effort & Inspection: normal respiratory effort, able to speak in complete sentences and no respiratory distress GI Inspection: Yes normal to inspection Back/Spine/Pelvis Cervical Spine: normal cervical lordosis Thoracic/Lumbar Spine: thoracic and lumbar spine normal to inspection Skin General skin exam: no rashes or lesions noted Neuro General: patient oriented x3, gait normal, tone normal and moves all extremities Extrem General: Yes normal to inspection and Yes capillary refill normal Office Procedures Post Void Residual Post Residual Void Post Void Residual (PVR): 0 [id number]-[id number] Void Residual by ultrasound Results AMB Urinalysis, Automated UA Leukoctes 0 Donnie/uL Last Edit by MARYAM Esqueda on 08/19/23 11:42 UA Nitrite Negative Last Edit by MARYAM Esqueda on 08/19/23 11:42 UA Urobilinogen 0.2 mg/dL Last Edit by MARYAM Esqueda on 08/19/23 11:42 UA Protein 0 mg/dL Last Edit by MARYAM Esqueda on 08/19/23 11:42 UA pH 6.0 Last Edit by MARYAM Esqueda on 08/19/23 11:42 UA Blood 0 Sascha/uL Last Edit by Fabian Solis A on 08/19/23 11:42 UA Specific [place] 1.020 Last Edit by MARYAM Esqueda on 08/19/23 11:42 UA Ketone Negative Last Edit by MARYAM Esqueda on 08/19/23 11:42 UA Bilirubin 0 mg/dL Last Edit by ANDER EsquedaA on 08/19/23 11:42 UA Glucose 0 mg/dL Last Edit by MARYAM Esqueda on 08/19/23 11:42 Results Reviewed Results Reviewed: Laboratory Last Values Urine pH (Auto) 6.0 08/19/23 11:40 Specific [place] (Auto) 1.020 08/19/23 11:40 Urine Protein (Auto) 0 mg/dL 08/19/23 11:40 Glucose (UA)(Auto) 0 mg/dL 08/19/23 11:40 Urine Ketones (Auto) Negative 08/19/23 11:40 Urine Blood (Auto) 0 Sascha/uL 08/19/23 11:40 Urine Nitrite (Auto) Negative 08/19/23 11:40 Urine Bilirubin (Auto) 0 mg/dL 08/19/23 11:40 Urine Urobilinogen (Auto) 0.2 mg/dL 08/19/23 11:40 Leukocyte Esterase (Auto) 0 Donnie/uL 08/19/23 11:40 Assessment & Plan Assessment & Plan (1) Erectile dysfunction due to arterial insufficiency: Code(s): N52.01 - Erectile dysfunction due to arterial insufficiency (2) BPH associated with nocturia: Code(s): N40.1 - Benign prostatic hyperplasia with lower urinary tract symptoms; R35.1 - Nocturia Plan 12 month follow-up Orders: Orders AMB Urinalysis Automated Today Z13.9 - Encounter for screening, unspecified AMB Post Void Residual by ultrasound Today N39.8 - Other specified disorders of urinary system Patient Instructions: Imaging studies, laboratory and physical exam results were discussed and reviewed in detail. No major barriers to patient understanding were identified. An opportunity to ask questions regarding the treatment plan was provided. All questions were answered. The patient expressed understanding and agreement with the above treatment plan. The patient is aware they should contact our office by phone for worsening of their current condition or the appearance of new urologic symptoms. Compliance is encouraged with any medications and followup testing that is ordered. It is a privilege to participate in the urologic care of your patient. If you have any questions or concerns regarding treatment for the above conditions, or other urologic issues, please do not hesitate to contact me. The office telephone contact is [phone]. This note is constructed using voice recognition software. While every effort has been made to ensure accuracy cinder block mason errors may have been included. Yours sincerely, Dr Williams Reina MD, [facility] - Urology Providers of Expert, Compassionate Care for the Genitourinary System Coding Level of Care Code Est Pt Level 4 (85019) Diagnoses Erectile dysfunction due to arterial insufficiency N52.01 BPH associated with nocturia N40.1; R35.1 CPT Codes Post Residual Void - PVR CPT Code: 27761-Drus Void Residual by ultrasound ([id number])
== END 2023-08-19 11:51 | disposition home or self-care (01) ==
PROVIDERS: PCP Internal Medicine; Visit Provider Urology
DX: N52.01 Erectile dysfunction due to arterial insufficiency (principal); N40.1 Benign prostatic hyperplasia with lower urinary tract symptoms; R35.1 Nocturia; Z13.9 Encounter for screening, unspecified
CPT/HCPCS: 99213

== ENCOUNTER → 2023-08-19 11:21 | Outpatient (BNVA) | payer BC, SELFPAY | PROVIDERS: Visit Provider Urology | DX: N40.1 Benign prostatic hyperplasia with lower urinary tract symptoms (principal); R35.1 Nocturia; N52.01 Erectile dysfunction due to arterial insufficiency | CPT/HCPCS: 51798; 81003 ==

== ENCOUNTER 2023-09-04 09:06 | Outpatient (AMB) | payer BC, SELFPAY ==
--- NOTE | 2023-09-04 09:29 | MHC.OFFWIV ---
Intake Vital Signs 09/04/23 09:36 Height 6 ft 2 in Weight 108.409 kg BMI 30.7 BP 130/78 Blood Pressure Location Lt brachial Pulse 80 Pulse Source Pulse Oximeter Temp 97.2 F Temp Source Oral Pulse Oximetry (%) 97 Oxygen Delivery Method Room Air Intake Visit Reasons: EP, bilateral ear wax removal [phone] Patient Tobacco Use Status: Former Tobacco user Quit Date: 04/20/2022 Allergies oxycodone [OXYCODONE] Allergy (Severe, Verified 09/04/23 09:30) SEVERE N/V Do you need a note to return to daycare/school/sports/work: No HPI HPI Comments History of Present Illness Details [id number] 63-year-old male history of hyperlipidemia, hypertension, BPH complaining of bilateral cerumen impaction to both ears, patient reports this happens to him often. Reports a fullness sensation in bilateral ears He is requesting that his ears be cleaned out. Denies tinnitus, otorrhea, fevers, chills, ear pain, sore throat, nausea, vomiting, abdominal pain, chest pain, shortness of breath, headache and vision changes. Physical exam with bilateral ears impacted with cerumen Likely cerumen impaction. No signs of otitis media, externa, mastoiditis, malignant otitis Plan irrigation with hydrogen peroxide and water. Educated patient on diagnosis and treatment plan, answered all question, patient verbalizes understanding. At this time patient will be discharged home, advised to return with new or worsening symptoms. Educated on worrisome signs and symptoms and when to return. At this time I feel comfortable discharge home. After cerumen removal was able to visualize pearly white tympanic membrane bilaterally without pain with manipulation of external ears. [facility] Medical History Carcinoid tumor of lung (~2021) Personal history of nicotine dependence Tubular adenoma of colon (~2018) Glaucoma Left shoulder tendinitis Umbilical hernia Hyperlipidemia HTN (hypertension) Surgical History History of lobectomy of lung (~2021) History of bronchoscopy (~2021) History of left hip replacement (~2015) History of nasal polypectomy (~2005) History of colonoscopy (~2019) History of tonsillectomy and adenoidectomy Family History Father Leukemia Mother No problems noted. Brother No problems noted. Brother No problems noted. Sister No problems noted. Sister No problems noted. Social History Household Members Other:: smokes 1/2 [facility]PD [facility] Alcohol intake: current Alcohol intake frequency: a few times a week Patient Tobacco Use Status: Former Tobacco user Quit Date: 04/20/2022 Tobacco use type: Cigarette Cigarette Packs Per Day: 0.5 Cigarettes Per Day: 10 Years Smoked: 40 e-Cigarette/Vaping Use: Never Used service: No Current occupational status: employed Current occupational exposures/hazards: No Cognitive needs: No Hearing needs: No Vision needs: Yes Review of Systems Const Details: Constitutional : No Weight loss, No Fever, No Chills, No Fatigue, No Malaise ENT/Mouth : No sore throat, No Rhinorrhea, + blocked ears Eyes: No Eye Pain, No Swelling, No Redness Cardiovascular : No Chest Pain, No SOB, No Dyspnea on Exertion, No Orthopnea, No Edema, No Palpitations Respiratory : No Cough, No Sputum, No Wheezing Gastrointestinal : No Nausea, No Vomiting, No Diarrhea, No Constipation, No abdominal Pain, No Hematochezia, No Melena Genitourinary : No Dysuria, No Urinary Frequency, No Hematuria, Musculoskeletal : No joint pain, No Myalgias, No Joint Swelling Skin : No Skin Lesions, No rash Neuro : No Weakness, No Numbness, No Dizziness, No Headache Psych : No Anxiety/Panic, No Depression All other systems reviewed and are negative All systems reviewed & are unremarkable except as noted in HPI and below Physical Exam Vital Signs: Last Vital Signs Temp 97.2 F 09/04/23 09:36 Pulse 80 09/04/23 09:36 BP 130/78 09/04/23 09:36 Pulse Ox 97 09/04/23 09:36 Oxygen Delivery Method Room Air 09/04/23 09:36 BMI result Body Mass Index 30.7 vss Appearance: Alert.? Oriented X3.? No acute distress.? Head: Normocephalic, atraumatic, no step-offs or deformities Eyes: Pupils equal, round and reactive to light.? ENT: Pharynx normal.?bilateral ears impacted with cerumen Neck: Normal inspection.? Neck supple.? CVS: Normal heart rate and rhythm.? Pulses normal.? Respiratory: No respiratory distress.? Breath sounds normal.? Skin: Skin warm and dry.? Normal skin color.? Normal skin turgor.? Extremities: No lower extremity edema.? No calf ttp. 5/5 strength to bilateral upper and lower extremities Neuro: Oriented X 3.? No motor deficit.? No sensory deficit. CN 2-12 intact Assessment & Plan Assessment & Plan (1) Bilateral impacted cerumen: Code(s): H61.23 - Impacted cerumen, bilateral Plan Take your medications as prescribed. If you were prescribed antibiotics today, it is important that you take your medication to their entirety, do not skip any doses, do not finish them early. Follow-up with your primary care provider this week. Return to the emergency department with new or worsening symptoms. Such as fevers, chills, chest pain, shortness of breath, nausea, vomiting, dizziness, headache, vision changes, lethargy In case of emergency call 911 Coding Level of Care Code Est Pt Level 3 (95778) Diagnoses Bilateral impacted cerumen H61.23
[2023-09-04 09:36] VITALS: BP 130/78; PULSE 80; TEMP 36.2; O2SAT 97; BMI 30.7
== END 2023-09-04 14:56 | disposition home or self-care (01) ==
PROVIDERS: PCP Internal Medicine; Visit Provider Physician Assistant
DX: H61.23 Impacted cerumen, bilateral (principal)
CPT/HCPCS: 99213

== ENCOUNTER 2023-09-27 07:45 | Day surgery (SDC) | payer BC, SELFPAY ==
[2023-09-23 14:52] VITALS: BMI 29.3
[2023-09-27 08:07] VITALS: BP 130/50; PULSE 85; RESP 18; TEMP 36.6; O2SAT 96
--- NOTE | 2023-09-27 08:10 | P.CONAN_ITS ---
[facility] Active Problems Active Problems: All Active Problems (Updated 09/23/23 @ 14:56 by Cristiane Bocanegra RN) Annual physical exam (Acute) Pulmonary nodule (Acute) Erectile dysfunction due to arterial insufficiency (Acute) BPH associated with nocturia (Acute) Carcinoid tumor of lung (Acute ~2021) Personal history of nicotine dependence (Acute) HTN (hypertension) (Acute) Hyperlipidemia (Acute) Glaucoma (Acute) Left shoulder tendinitis (Acute) Past Medical History Medical History (Updated 09/23/23 @ 14:56 by Cristiane Bocanegra RN) Sleep apnea Carcinoid tumor of lung (~2021) Personal history of nicotine dependence Tubular adenoma of colon (~2018) Glaucoma Left shoulder tendinitis Umbilical hernia Hyperlipidemia HTN (hypertension) Family History Family History Father Leukemia Mother No problems noted. Brother No problems noted. Brother No problems noted. Sister No problems noted. Sister No problems noted. Family history of problems with anesthesia: No Surgical History Surgical History History of lobectomy of lung (~2021) History of bronchoscopy (~2021) History of left hip replacement (~2015) History of nasal polypectomy (~2005) History of colonoscopy (~2019) History of tonsillectomy and adenoidectomy History of Problems with Anesthesia: No Social History Social History Household Members Other:: smokes 1/2 [facility]PD [facility] Alcohol intake: current Alcohol intake frequency: a few times a week Patient Tobacco Use Status: Former Tobacco user Quit Date: 04/20/2022 Tobacco use type: Cigarette Cigarette Packs Per Day: 0.5 Cigarettes Per Day: 10 Years Smoked: 40 e-Cigarette/Vaping Use: Never Used Advance Directives: No Advance Directives Information Provided: Yes service: No Current occupational status: employed Current occupational exposures/hazards: No Cognitive needs: No Hearing needs: No Vision needs: Yes Meds Allergies Allergy/AdvReac Type Severity Reaction Status Date / Time oxycodone [OXYCODONE] Allergy Severe SEVERE N/V Verified 09/04/23 09:30 Active Medications: Current Medications Lactated Ringer's (Lr) 1,000 mls @ 50 mls/hr IVCONT .Q20H YEHUDA Exam Exam Date and Time: September 27, 2023 0810 Height,Weight and Vital Signs: Height 6 ft 2 in Weight 103.419 kg Last Vital Signs Temp 97.9 F 09/27/23 08:07 Pulse 85 09/27/23 08:07 Resp 18 09/27/23 08:07 BP 130/50 L 09/27/23 08:07 Pulse Ox 96 09/27/23 08:07 O2 Del Method Room Air 09/27/23 08:07 Airway Mallampati Class: II TM Dist: >3cm Neck ROM: Full Heart: rrr Lungs: cta Assessment and Plan Assessment Anesthesia Assessment: Anesthesia Plan Discussed and Chart Reviewed Final Anesthetic Review Family History of Problems with Anesthesia: No History of Problems with Anesthesia: No NPO: Yes ASA Class: II Final Preanesthetic Review: No Changes in Pt Med Stat, Meds/Allgs Chart Reviewed and Consent Obtained/Reviewed Patient Risk: Intermediate Procedure Risk: Intermediate Anesthetic Plan Anesthetic Plan: MAC: Disposition: Standard PACU
[2023-09-27] MEDS: Lactated Ringers 1,000 ML 50 ML IVCONT (08:32)
--- NOTE | 2023-09-27 08:39 | MHC.SHP ---
Pre-Procedural Eval Section A Date of Service: 09/27/23 Section B Chief Complaint: Colon cancer screening Relevant Family History (Specify if Yes): No Relevant Social History: Tobacco Use (former smoker) Present Medications: see Short Stay Collaborative assessment Medical History: Significant History (Carcinoid tumor of lung (~2021) Glaucoma HTN (hypertension) Hyperlipidemia Left shoulder tendinitis Personal history of nicotine dependence Tubular adenoma of colon (~2018) Umbilical hernia) History of Previous Operations: Relevant previous surgery/procedure and date(s) (History of bronchoscopy (~2021) History of colonoscopy (~2019) History of left hip replacement (~2015) History of lobectomy of lung (~2021) History of nasal polypectomy (~2005) History of tonsillectomy and adenoidectomy) Allergies: Allergies Allergy/AdvReac Type Severity Reaction Status Date / Time oxycodone [OXYCODONE] Allergy Severe SEVERE N/V Verified 09/04/23 09:30 Review of Systems Sugical H&P ROS: Negative: Constitution, Cardiovascular, Respiratory and Gastrointestinal Exam Surgical H&P Exam: Normal: Heart, Normal: Lungs, Normal: Extremities and Normal: Abdomen Plan Diagnosis/Plan: Unchanged I have reviewed the history and physical and performed a pertinent physical examination on my patient. No changes have occurred unless specified. Time Spent With Patient Time: Total time managing care of this patient today ____ minutes.
--- NOTE | 2023-09-27 09:16 | W.PM.OPN ---
Operative Note Operative Note Date of Service: 09/27/23 Narrative: COLONOSCOPY TILL CECUM WITH SNARE POLYPECTOMY, SUBMUCOSAL INJECTION AND HEMOCLIP PLACEMENT Pre-op diagnosis: Surveillance for colon polyps Post-op diagnosis:? Colon polyps, diverticulosis, hemorrhoid Endoscopist:? Burke Garcia MD Anesthesia:?MAC Consent: Indications for the procedure and potential complications of bleeding, perforation, reaction to medications and missed diagnosis were discussed with the patient and informed consent was obtained. Instrument: Olympus CF H 190 L variable stiffness adult colonoscope Monitoring: Vital signs and clinical assessment, intermittent blood pressure monitoring, continuous EKG monitoring, Pulse oximetry and Carbon Dioxide monitoring were done throughout the procedure. Please see anesthesia flowsheet. Colon withdrawl time was 28 minutes. Procedure: The patient was placed in the left lateral decubitis position and pre-procedure medications were administered. After a digital rectal examination of the ano-rectum, the video colonoscope was inserted into the rectum and advanced through the colon to the cecum. The colonoscope was slowly withdrawn in a retrograde panoramic fashion and the colon mucosa was carefully examined including a retroflexed view of the rectum. Findings and interventions are described below. Procedure Difficulty: Without difficulty Findings: Terminal Ileum: Not evaluated Cecum: Normal Ascending Colon: Normal Transverse Colon: A 1.8 to 2 cms flat polyp in the proximal TC at 70 cms. Polyp was raised with 3 cc of Eleview and removed with a hot stiff snare. Polypectomy site was closed with 1 hemoclip and marked with Gail ink Descending Colon: Normal Sigmoid Colon: Moderate diverticulosis Rectum: A 10 mm sessile polyp - removed with hot snare Ano-rectum: Small internal hemorrhoids Colon preparation: Good Impression and Post Procedure Diagnosis: Colonoscopy Findings: Two medium sized polyps removed Moderate diverticulosis seen in the sigmoid colon Small hemorrhoids on retroflexed exam. Plan: Await pathology results Patient has an appointment on 10/11/23 in the GI Clinic with Precious López FNP-BC. Repeat Colonoscopy interval based on path results - in 3 years if polyps are adenomatous and 5 years if polyps are hyperplastic (due to a history of adenomatous colon polyps). Above findings were reviewed with the patient and colon polyps and diverticulosis handouts were given in the discharge area
[2023-09-27 10:08] VITALS: BP 97/63; PULSE 63; RESP 16; TEMP 36.8; O2SAT 95
[2023-09-27 10:21] VITALS: BP 115/77; PULSE 63; RESP 17; TEMP 36; O2SAT 98
== END 2023-09-27 10:55 | disposition home or self-care (01) ==
PROVIDERS: PCP Internal Medicine; Visit Provider Internal Medicine Gastroenterology
PROC: 0DJD8ZZ Inspection of Lower Intestinal Tract, Via Natural or Artificial Opening Endoscopic (ICD-10-PCS; CPT 45378; principal; 2023-09-27 09:20)
DX: Z12.11 Encounter for screening for malignant neoplasm of colon (principal); D12.8 Benign neoplasm of rectum; K57.30 Diverticulosis of large intestine without perforation or abscess without bleeding; K64.8 Other hemorrhoids; I10 Essential (primary) hypertension; E78.5 Hyperlipidemia, unspecified; G47.30 Sleep apnea, unspecified; Z85.110 Personal history of malignant carcinoid tumor of bronchus and lung; Z87.891 Personal history of nicotine dependence
CPT/HCPCS: 45385; 45380; 45381; 88305; J2704

== ENCOUNTER → 2023-09-27 07:45 | Outpatient (BNV) | payer BC, SELFPAY | PROVIDERS: PCP Internal Medicine; Visit Provider Internal Medicine Gastroenterology | DX: Z12.11 Encounter for screening for malignant neoplasm of colon (principal); Z86.010 Personal history of colon polyps; K57.30 Diverticulosis of large intestine without perforation or abscess without bleeding; D12.3 Benign neoplasm of transverse colon; D12.8 Benign neoplasm of rectum; K64.8 Other hemorrhoids | CPT/HCPCS: 45381; 45385 ==

== ENCOUNTER 2023-10-11 07:55 | Outpatient (AMB) | payer BC, SELFPAY ==
--- NOTE | 2023-10-11 08:05 | A.OFFVIS_ITS ---
Intake Vital Signs 10/11/23 08:06 Height 6 ft 2 in Weight 237 lb 10.533 oz BMI 30.5 BP 157/88 H Blood Pressure Location Rt brachial Position Sitting Pulse 76 Pulse Source Pulse Oximeter Intake Visit Reasons: s/P [place] screening; Dr. Fulton Intake Note: Pt presents to the office today for a s/p colonoscopy. Pt states he is feeling well and denies any GI concerns at this time. Allergies oxycodone [OXYCODONE] Allergy (Severe, Verified 10/11/23 08:07) SEVERE N/V HPI s/P [place] screening; Dr. Fulton HPI Details LAST VISIT Screen for colon cancer Patient denies any GI, cardiac or respiratory symptoms.? Denies any issues with anesthesia in the past.? Denies any history of sleep apnea.? No history infectious diseases in the past or present.? Not on any anticoagulation therapy.? No family or personal history of colon cancer.? Patient denies melena, hematochezia, unintentional weight loss or ribbon like stools.? Discussed at length the pre-procedure,? prep, diet & medications as well as what to expect prior, during and after the procedure.?? Stressed the importance of good bowel prep. ?Recommended the use of Vaseline or Calmoseptine OTC & baby wipes with bowel movements to promote comfort.? ?Patient verbalizes understanding and agrees to plan of care.? He was given the opportunity to ask questions and all questions answered.? We will see him after the procedure COLONOSCOPY Findings: Terminal Ileum: Not evaluated Cecum: Normal Ascending Colon: Normal Transverse Colon: A 1.8 to 2 cms flat polyp in the proximal TC at 70 cms. Polyp was raised with 3 cc of Eleview and removed with a hot stiff snare. Polypectomy site was closed with 1 hemoclip and marked with Gail ink Descending Colon: Normal Sigmoid Colon: Moderate diverticulosis Rectum: A 10 mm sessile polyp - removed with hot snare Ano-rectum: Small internal hemorrhoids Colon preparation: Good Impression and Post Procedure Diagnosis: Colonoscopy Findings: Two medium sized polyps removed Moderate diverticulosis seen in the sigmoid colon Small hemorrhoids on retroflexed exam. Plan: Repeat Colonoscopy interval based on path results - in 3 years if polyps are adenomatous and 5 years if polyps are hyperplastic (due to a history of adenomatous colon polyps). PATHOLOGY: Diagnosis A. Cecum, polypectomy: Colonic mucosa with mild surface hyperplastic changes. B. Colon, transverse 70 cm, polypectomy: Hyperplastic mucosal polyp. C. Rectum, polypectomy: Tubular adenoma; negative for high-grade dysplasia or carcinoma TODAY'S VISIT: Patient is here today for follow-up and to discuss colonoscopy results. Patient denies any ill effects from the prep, anesthesia or procedure itself. Patient reports that he has been feeling well. Colonoscopy results discussed with patient. Tubular adenoma found in the rectum and to hyperplastic polyps seen in cecum and transverse colon. Patient was also found to have moderate diverticulosis of to the sigmoid colon. Patient reports that he is moving his bowels well. States that he is eating lots of vegetables. Denies any melena, hematochezia, unintentional weight loss or ribbon like stools. Patient denies any dyspepsia, dysphagia or odynophagia. Denies any other GI concerning symptoms. [facility] Medical History (Updated 10/11/23 @ 08:30 by Precious López, [facility]) Diverticulosis Tubular adenoma Sleep apnea Carcinoid tumor of lung (~2021) Personal history of nicotine dependence Tubular adenoma of colon (~2018) Glaucoma Left shoulder tendinitis Umbilical hernia Hyperlipidemia HTN (hypertension) Surgical History History of lobectomy of lung (~2021) History of bronchoscopy (~2021) History of left hip replacement (~2015) History of nasal polypectomy (~2005) History of colonoscopy (~2019) History of tonsillectomy and adenoidectomy Family History Father Leukemia Mother No problems noted. Brother No problems noted. Brother No problems noted. Sister No problems noted. Sister No problems noted. Household Members Other:: smokes 1/2 PPD Housing: [facility] Alcohol intake: current Alcohol intake frequency: a few times a week Patient Tobacco Use Status: Former Tobacco user Quit Date: 04/20/2022 Tobacco use type: Cigarette Cigarette Packs Per Day: 0.5 Cigarettes Per Day: 10 Years Smoked: 40 e-Cigarette/Vaping Use: Never Used service: No Current occupational status: employed Current occupational exposures/hazards: No Cognitive needs: No Hearing needs: No Vision needs: Yes Review of Systems Const Denies weight gain and Denies weight loss ENT Reports no additional complaints, Denies dysphagia and Denies odynophagia Card Reports no additional complaints Resp Reports no additional complaints GI Denies abdominal pain, Denies belching, Denies melena, Denies bloating, Denies change in bowel habits, Denies dysphagia, Denies excessive flatus, Denies dyspepsia, Denies heartburn, Denies diarrhea, Denies loose stools, Denies nausea, Denies odynophagia and Denies vomiting Reports no additional complaints Musc Reports no additional complaints Neuro Reports no additional complaints Psych Reports no additional complaints Endo Reports no additional complaints Physical Exam Vital Signs: Last Vital Signs Pulse 76 10/11/23 08:06 BP 157/88 H 10/11/23 08:06 BMI result Body Mass Index 30.5 Const General: healthy appearing, no acute distress and well developed Nutritional Appearance: obese Orientation/consciousness: patient oriented x3 HEENT Head: Yes normal to inspection, Yes normocephalic and Yes atraumatic Face and sinus: Yes normal facial exam Mouth: Normal oral and palatal mucosa present Throat: Yes posterior oropharynx normal, Yes tonsils normal and Yes uvula mi dline Eyes General: appearance normal, both eyes and all related structures Neck Neck: Yes normal visual inspection, Yes full ROM and Yes trachea midline Thyroid: Thyroid normal Resp Effort & Inspection: normal respiratory effort, able to speak in complete sentences, no tracheal deviation and symmetric chest movement Auscultation: clear to auscultation bilaterally Cardio Rate: regular rate Heart sounds: S1 normal heart sound present and S2 normal heart sound present GI Inspection: Yes normal to inspection, No distended and Yes obesity Palpation (GI): Soft to palpation, not firm, nontender and No hepatosplenomegaly present Auscultation: normal bowel sounds General: Yes no CVA tenderness Back/Spine/Pelvis Back: no CVA tenderness Skin General skin exam: elasticity normal, turgor normal and dry skin Neuro General: patient oriented x3 Psych Appearance: grossly normal Mental Status: mental status grossly normal Assessment & Plan Assessment & Plan (1) Tubular adenoma: Code(s): D36.9 - Benign neoplasm, unspecified site (2) Diverticulosis: Code(s): K57.90 - Diverticulosis of intestine, part unspecified, without perforation or abscess without bleeding (3) Status post colonoscopy: Code(s): Z98.890 - Other specified postprocedural states Plan Tubular adenoma found in the rectum and to hyperplastic polyps. Patient does have a history of tubular adenoma in the past and will repeat colonoscopy in 3 years. Patient denies any ill effects from the prep, anesthesia procedure itself. Reports to be moving his bowels well without any issues. Discussed with patient the importance of high-fiber diet. List of food high in fiber given to patient. Patient can start taking probiotics daily. Patient will follow-up in our office on as-needed basis. He is agreeable to this plan and verbalizes understanding of instructions. He was given the opportunity to ask questions and all questions answered. Thank you for allowing me to participate in his care Coding Level of Care Code Est Pt Level 3 (10627) Diagnoses Tubular adenoma D36.9 Diverticulosis K57.90 Status post colonoscopy Z98.890 Time Spent (min) 30 Comment 20 minutes spent with patient and additional 10 minutes spent reviewing his records at the
[2023-10-11 08:06] VITALS: BP 157/88; PULSE 76; BMI 30.5
== END 2023-10-11 08:50 | disposition home or self-care (01) ==
PROVIDERS: PCP Internal Medicine; Visit Provider Nurse Practitioner Family
DX: D36.9 Benign neoplasm, unspecified site (principal); K57.90 Diverticulosis of intestine, part unspecified, without perforation or abscess without bleeding; Z98.890 Other specified postprocedural states
CPT/HCPCS: 99213

== ENCOUNTER → 2023-10-11 07:55 | Outpatient (BNVA) | payer BC, SELFPAY | PROVIDERS: PCP Internal Medicine; Visit Provider Nurse Practitioner Family ==

== ENCOUNTER 2024-01-03 08:10 | Outpatient (REF) | payer BC, SELFPAY ==
[2024-01-03 08:17] LABS: MANUAL DIFF FLAG NO
[2024-01-03 08:52] LABS: Basophils Absolute Auto 0.1 X10*3/uL (0.0-0.2); Basophils Percent Auto 1.3 % (0-2); Eosinophils Absolute Auto 0.2 X10*3/uL (0.0-0.4); Eosinophils Percent Auto 3.5 % (0-4); Hematocrit 44.7 % (42.0-52.0); Hemoglobin 14.6 g/dl (14.0-18.0); Imm Gran Abs Auto 0.03 X10*3/uL (0.00-0.03); Imm Gran Pct Auto 0.6 % (0.0-0.4); Lymphocytes Absolute Auto 1.1 X10*3/uL (1.2-4.9); Mean Corpuscular HGB Conc 32.7 g/dl (31.0-36.0); Mean Corpuscular Hemoglobin 30.4 pg (27.0-33.0); Mean Corpuscular Volume 93.1 fL (80.0-98.0); Mean Platelet Volume 9.2 fL (9.4-12.4); Monocytes Absolute Auto 0.5 X10*3/uL (0.1-1.2); Monocytes Percent Auto 8.3 % (2-11); Neutrophils Absolute Auto 3.6 x10*3/uL (2.0-8.3); Neutrophils Percent Auto 66.3 % (45-73); Platelet Count 288 X10*3/uL (160-400); Red Cell Distribution Width 12.5 % (11.0-16.0); White Blood Count 5.4 X10*3/uL (4.8-10.8)
[2024-01-03 09:27] LABS: Alanine Aminotransferase 7 U/L (0-40); Albumin Level 4.5 g/dL (3.5-5.0); Alkaline Phosphatase 81 U/L (39-117); Anion Gap 10 (12-20); Aspartate Amino Transferase 17 U/L (5-37); Bilirubin Total 0.5 mg/dL (0.0-1.0); Blood Urea Nitrogen 10 mg/dL (9-16); Calcium 9.5 mg/dL (8.4-10.2); Carbon Dioxide 29 mmol/L (22-29); Chloride 104 mmol/L (96-108); Cholesterol 165 mg/dL (<200); Estimated Glomerular Filt Rate > 60; Glucose Fasting 109 mg/dL (60-99); HDL Cholesterol 54 mg/dL (>40); LDL Cholesterol Calculated 95 mg/dL (<100); Potassium 4.4 mmol/L (3.3-5.1); Sodium 139 mmol/L (135-145); Total Protein 7.2 g/dL (6.5-8.0); Triglycerides 83 mg/dL (<150)
== END 2024-01-03 08:11 | disposition home or self-care (01) ==
LOC: HO.LAB 08:10
PROVIDERS: Visit Provider Internal Medicine
DX: Z00.00 Encounter for general adult medical examination without abnormal findings (principal)
CPT/HCPCS: 36415; 80053; 80061; 85025

== ENCOUNTER 2024-01-11 07:46 | Outpatient (AMB) | payer BC, SELFPAY ==
--- NOTE | 2024-01-11 08:05 | A.OFFPC_ITS ---
Vital Signs 01/11/24 08:06 Height 6 ft 2 in Weight 232 lb BMI 29.8 BP 134/80 Blood Pressure Location Lt brachial Position Sitting Pulse 73 Pulse Source Pulse Oximeter Pulse Oximetry (%) 97 Oxygen Delivery Method Room Air Intake Visit Reasons: Annual PE Intake Note: Pt is here today for PE. Allergies oxycodone [OXYCODONE] Allergy (Severe, Verified 01/11/24 08:10) SEVERE N/V Tobacco use date assessed: 01/11/24 Fall risk assessment: No Falls in past year Last assessed Fall Risk: 01/11/24 Dental Screening Dental Screen Date: 01/11/24 Did you have a dental visit in the last 12 months?: Yes Did you have a dental problem in the last 6 months where you did not have access to dental care?: No Was dental information given to patient?: Patient has dentist HPI Annual PE HPI Details Patient presents for physical. [facility] Medical History Diverticulosis Tubular adenoma Sleep apnea Carcinoid tumor of lung (~2021) Personal history of nicotine dependence Tubular adenoma of colon (~2018) Glaucoma Left shoulder tendinitis Umbilical hernia Hyperlipidemia HTN (hypertension) Surgical History History of lobectomy of lung (~2021) History of bronchoscopy (~2021) History of left hip replacement (~2015) History of nasal polypectomy (~2005) History of colonoscopy (~2019) History of tonsillectomy and adenoidectomy Family History Father Leukemia Mother Alzheimer's dementia Brother No problems noted. Brother No problems noted. Sister No problems noted. Sister No problems noted. Social History Household Members Other:: smokes 1/2 PPD Housing: Condominium Alcohol intake: current Alcohol intake frequency: a few times a week Patient Tobacco Use Status: Former Tobacco user Quit Date: 04/20/2022 Tobacco use type: Cigarette Cigarette Packs Per Day: 0.5 Cigarettes Per Day: 10 Years Smoked: 40 e-Cigarette/Vaping Use: Never Used service: No Current occupational status: employed Current occupational exposures/hazards: No Cognitive needs: No Hearing needs: No Vision needs: Yes Questionnaire Thrive Questionnaire Date Thrive assessed: 01/06/23 ELKE-7 AMB Questionnaire ELKE-7 Date ELKE - 7 assessed: 01/06/23 Source: Developed by Drs. Son Ochoa, Sierra Gardiner, Sebastien Roblero and colleagues, with an educational barby from [employer]. Review of Systems Const All systems reviewed & are unremarkable except as noted in HPI and below Reports no additional complaints Eyes Reports no additional complaints ENT Reports no additional complaints Card Reports no additional complaints Resp Reports no additional complaints GI Reports no additional complaints Reports no additional complaints Musc Reports no additional complaints Physical exam (Primary Care) Vital Signs: Last Vital Signs Pulse 73 01/11/24 08:06 BP 134/80 01/11/24 08:06 Pulse Ox 97 01/11/24 08:06 Oxygen Delivery Method Room Air 01/11/24 08:06 BMI result Body Mass Index 29.8 Tobacco/Smoking Status: Tobacco use Status Tobacco use date assessed 01/11/24 01/11/24 08:12 Patient Tobacco Use Status Former Tobacco user 01/11/24 08:06 Tobacco use type Cigarette 01/11/24 08:06 e-Cigarette/Vaping Use Never Used 01/11/24 08:06 Thrive Assessment: Date of Thrive Assessment Date Thrive assessed 01/06/23 01/11/24 08:06 Const General: no acute distress [facility] General nose exam: Normal external nose present Face and sinus: Yes normal facial exam Mouth: Normal oral and palatal mucosa present Throat: Yes posterior oropharynx normal Eyes General: appearance normal, both eyes and all related structures Neck Neck: Yes no lymphadenopathy and Yes supple Resp Effort & Inspection: normal respiratory effort Auscultation: clear to auscultation bilaterally Cardio Rhythm: regular rhythm Heart sounds: S1 normal heart sound present and S2 normal heart sound present GI Inspection: Yes normal to inspection Palpation (GI): Soft to palpation Percussion: Yes normal to percussion Auscultation: normal bowel sounds Assessment and Plan Assessment & Plan (1) History of lobectomy of lung: Onset Date: ~2021 Comment: (RLL Lobectomy - Shavon Hui - 04/20/2022), CT scan q 6 months for 2 yrs, then annually for 8 yrs, Code(s): Z90.2 - Acquired absence of lung [part of] Plan: f/u with thoracic surgeon q 6 months (2) Carcinoid tumor of lung: Onset Date: ~2021 Comment: (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) Code(s): D3A.090 - Benign carcinoid tumor of the bronchus and lung (3) Personal history of nicotine dependence: Comment: quit 2021 Code(s): Z87.891 - Personal history of nicotine dependence (4) HTN (hypertension): Code(s): I10 - Essential (primary) hypertension Plan: cont meds (5) Hyperlipidemia: Code(s): E78.5 - Hyperlipidemia, unspecified Plan: cont statin (6) Annual physical exam: Code(s): Z00.00 - Encounter for general adult medical examination without abnormal findings Plan: well balanced diet, regular exercise discussed with the patient (7) History of colonoscopy: Onset Date: ~2019 Comment: (Tubular Adenoma on 05/09/19, Hyperplastic polyp 07/04/20 - [place] [facility] [place] tubular adenoma, repeat 3 yrs Code(s): Z98.890 - Other specified postprocedural states Coding Level of Care Code Est Pt Prev Care 40-64y(12788) Diagnoses History of lobectomy of lung Z90.2 Carcinoid tumor of lung D3A.090 Personal history of nicotine dependence Z87.891 HTN (hypertension) I10 Hyperlipidemia E78.5 Annual physical exam Z00.00 History of colonoscopy Z98.890
[2024-01-11 08:06] VITALS: BP 134/80; PULSE 73; O2SAT 97; BMI 29.8
== END 2024-01-11 09:32 | disposition home or self-care (01) ==
PROVIDERS: PCP Internal Medicine; Visit Provider Internal Medicine
DX: Z90.2 Acquired absence of lung [part of] (principal); D3A.090 Benign carcinoid tumor of the bronchus and lung; Z87.891 Personal history of nicotine dependence; I10 Essential (primary) hypertension; E78.5 Hyperlipidemia, unspecified; Z00.00 Encounter for general adult medical examination without abnormal findings; Z98.890 Other specified postprocedural states
CPT/HCPCS: 99396

== ENCOUNTER 2024-08-23 08:11 | Outpatient (AMB) | payer BC, MEDICARE, SELFPAY ==
--- NOTE | 2024-08-23 08:17 | MHC.OFFVIS ---
Intake Visit Reasons: 1Y PVR Intake Note: Patient is Present for PVR Urology Med: Tamsulosin Antibiotic Allergy: None Blood Thinner: None Last PVR: 0ml Todays PVR: 19ml Residential Care Facility Manager Required: No Accompanied by: Self / Same As Patient Allergies oxycodone [OXYCODONE] Allergy (Severe, Verified 08/23/24 08:20) SEVERE N/V HPI Comments Details: Abel is a very pleasant male. He is a patient Dr. Rae. He is seen for following urologic conditions - lower urinary tract symptoms - erectile dysfunction Yearly review. PVR 20 Continue with tamsulosin Situational ED Has issues when not enough sleep Medication provided Lower urinary tract symptoms ? Current visit is for further evaluation of, lower urinary tract symptoms, predominate obstructive symptoms. ? Current treatment includes? medication - tamsulosin ? Prostate Symptom Score 2/18 , Moderate (9-19), Moderate (9-19) ?3/18 , Mild (0-8), Bother 2. ? Symptoms include 2/ , incomplete emptying, weak stream, nocturia (>2), and are progressing ?3/ , incomplete emptying, weak stream, and are improving - longer time to urinate. ? PSA 08/03 0.9, 08/05 0.9, 08/06 0.8 ? Prostate volume 30-50gm. ? Testing at next visit will include bladder scan?? [facility] Medical History Diverticulosis Tubular adenoma Sleep apnea Carcinoid tumor of lung (~2021) Personal history of nicotine dependence Tubular adenoma of colon (~2018) Glaucoma Left shoulder tendinitis Umbilical hernia Hyperlipidemia HTN (hypertension) Surgical History History of lobectomy of lung (~2021) History of bronchoscopy (~2021) History of left hip replacement (~2015) History of nasal polypectomy (~2005) History of colonoscopy (~2019) History of tonsillectomy and adenoidectomy Family History Father Leukemia Mother Alzheimer's dementia Brother No problems noted. Brother No problems noted. Sister No problems noted. Sister No problems noted. Social History Household Members Other:: smokes 1/2 PPD Housing: Condominium Alcohol intake: current Alcohol intake frequency: a few times a week Patient Tobacco Use Status: Former Tobacco user Tobacco use type: Cigarette Cigarette Packs Per Day: 0.5 Cigarettes Per Day: 10 Years Smoked: 40 e-Cigarette/Vaping Use: Never Used service: No Current occupational status: employed Current occupational exposures/hazards: No Cognitive needs: No Hearing needs: No Vision needs: Yes Review of Systems Const Denies chills and Denies fever(s) Card Reports no additional complaints and Denies syncope Resp Denies cough GI Denies abdominal pain and Denies heartburn Reports as per HPI and Denies change in libido Neuro Denies syncope Psych Denies change in libido Endo Denies change in libido Physical Exam Const General: cooperative, healthy appearing, comfortable and no acute distress Orientation/consciousness: patient oriented x3 HEENT Face and sinus: Yes normal facial exam Mouth: moist mucous membranes Neck Neck: Yes normal visual inspection, Yes full ROM and Yes trachea midline Chest Chest palpation & inspection: normal inspection of the chest Resp Effort & Inspection: normal respiratory effort, able to speak in complete sentences and no respiratory distress GI Inspection: Yes normal to inspection Back/Spine/Pelvis Cervical Spine: normal cervical lordosis Thoracic/Lumbar Spine: thoracic and lumbar spine normal to inspection Skin General skin exam: no rashes or lesions noted Neuro General: patient oriented x3, gait normal, tone normal and moves all extremities Extrem General: Yes normal to inspection and Yes capillary refill normal Office Procedures Post Void Residual Post Residual Void Post Void Residual (PVR): 19 48824-Sebn Void Residual by ultrasound Assessment & Plan Assessment & Plan (1) BPH associated with nocturia: Code(s): N40.1 - Benign prostatic hyperplasia with lower urinary tract symptoms; R35.1 - Nocturia Category: Medical (2) Erectile dysfunction due to arterial insufficiency: Code(s): N52.01 - Erectile dysfunction due to arterial insufficiency Category: Medical Plan Twelve month follow-up Orders: Orders AMB Post Void Residual by ultrasound Today N40.1 - Benign prostatic hyperplasia with lower urinary tract symptoms, R35.1 - Nocturia Medications: New sildenafil administer 60 minutes before intended activity - [id number] [facility] [id number] Member [id number] 100 mg PO ONCE PRN 30 tabs 1RF sexual activity 30 days E11.69 - Type 2 diabetes mellitus with other specified complication, N52.1 - Erectile dysfunction due to diseases classified elsewhere Refilled tamsulosin 0.4 mg PO DAILY 90 caps 3RF 90 days N40.1 - Benign prostatic hyperplasia with lower urinary tract symptoms, R35.1 - Nocturia Patient Instructions: Imaging studies, laboratory and physical exam results were discussed and reviewed in detail. No major barriers to patient understanding were identified. An opportunity to ask questions regarding the treatment plan was provided. All questions were answered. The patient expressed understanding and agreement with the above treatment plan. The patient is aware they should contact our office by phone for worsening of their current condition or the appearance of new urologic symptoms. Compliance is encouraged with any medications and followup testing that is ordered. It is a privilege to participate in the urologic care of your patient. If you have any questions or concerns regarding treatment for the above conditions, or other urologic issues, please do not hesitate to contact me. The office telephone contact is [phone]. This note is constructed using voice recognition software. While every effort has been made to ensure accuracy route sales delivery drivers supervisor errors may have been included. Yours sincerely, Dr Williams Reina MD, [facility] - Urology Providers of Expert, Compassionate Care for the Genitourinary System Coding Level of Care Code Est Pt Level 4 (01346) Diagnoses BPH associated with nocturia N40.1; R35.1 Erectile dysfunction due to arterial insufficiency N52.01 CPT Codes Post Residual Void - PVR CPT Code: 88913-Wyqr Void Residual by ultrasound ([id number])
== END 2024-08-23 08:55 | disposition home or self-care (01) ==
PROVIDERS: PCP Internal Medicine; Visit Provider Urology
DX: N40.1 Benign prostatic hyperplasia with lower urinary tract symptoms (principal); R35.1 Nocturia; N52.01 Erectile dysfunction due to arterial insufficiency
CPT/HCPCS: 99214

== ENCOUNTER → 2024-08-23 08:11 | Outpatient (BNVA) | payer MEDICARE, SELFPAY | PROVIDERS: PCP Internal Medicine; Visit Provider Urology | DX: N40.1 Benign prostatic hyperplasia with lower urinary tract symptoms (principal); N13.8 Other obstructive and reflux uropathy; N52.01 Erectile dysfunction due to arterial insufficiency; R35.1 Nocturia | CPT/HCPCS: 51798; 99212 ==

== ENCOUNTER 2024-12-27 12:31 | Outpatient (AMB) | payer MEDICARE, SELFPAY ==
[2024-12-27 12:32] VITALS: BP 110/70; PULSE 74; RESP 18; TEMP 36.6; O2SAT 96
--- NOTE | 2024-12-27 12:32 | MHC.PC.OV ---
Vital Signs 12/27/24 12:32 Height 6 ft 2 in Weight 234 lb BMI 30.0 BP 110/70 Blood Pressure Location Lt brachial Position Sitting Respiration 18 Pulse 74 Pulse Source Pulse Oximeter Temp 97.9 F Temp Source Oral Pulse Oximetry (%) 96 Oxygen Delivery Method Room Air Intake Visit Reasons: Lower Abdominal Pain Intake Note: Pt is here today for a sick visit. Pt c/o lower abdominal pain. Allergies oxycodone [OXYCODONE] Allergy (Severe, Verified 12/27/24 12:36) SEVERE N/V Medication List - Last Reconciled 12/27/24 by Stephanie Mcneal MD amlodipine 5 mg PO DAILY atorvastatin 20 mg PO BEDTIME benazepril 10 mg PO DAILY meclizine 25 mg PO TID PRN sildenafil 100 mg PO ONCE PRN 30 days tamsulosin 0.4 mg PO DAILY 90 days Tobacco use date assessed: 12/27/24 Fall risk assessment: No Falls in past year Last assessed Fall Risk: 12/27/24 Dental Screening Dental Screen Date: 12/27/24 Did you have a dental visit in the last 12 months?: Yes Did you have a dental problem in the last 6 months where you did not have access to dental care?: No Was dental information given to patient?: Patient has dentist HPI Lower Abdominal Pain HPI Details Pt had LLQ abd and L flank constant, also at night not positional for 1 week which resolved 3 weeks ago. Pt denies nausea vomiting fever chills hematuria change in bowel habits pain radiating to extremities. Hypertension and hyperlipidemia has been controlled on current medications. patient has been taking tamsulosin for BPH. He reports occasional nocturia and slow urine stream. Patient is also concerned about umbilical hernia getting bigger and causing intermittent discomfort. [facility] Medical History Diverticulosis Tubular adenoma Sleep apnea Carcinoid tumor of lung (~2021) Personal history of nicotine dependence Tubular adenoma of colon (~2018) Glaucoma Left shoulder tendinitis Umbilical hernia Hyperlipidemia HTN (hypertension) Surgical History History of lobectomy of lung (~2021) History of bronchoscopy (~2021) History of left hip replacement (~2015) History of nasal polypectomy (~2005) History of colonoscopy (~2019) History of tonsillectomy and adenoidectomy Family History Father Leukemia Mother Alzheimer's dementia Brother No problems noted. Brother No problems noted. Sister No problems noted. Sister No problems noted. Social History Household Members Other:: smokes 1/2 PPD [facility] Alcohol intake: current Alcohol intake frequency: a few times a week Patient Tobacco Use Status: Former Tobacco user Tobacco use type: Cigarette Cigarette Packs Per Day: 0.5 Cigarettes Per Day: 10 Years Smoked: 40 e-Cigarette/Vaping Use: Never Used service: No Current occupational status: employed Current occupational exposures/hazards: No Cognitive needs: No Hearing needs: No Vision needs: Yes Questionnaire PHQ-9 Over the last 2 weeks, how often have you been bothered by any of the following problems? 1. Little interest or pleasure in doing things: not at all 2. Feeling down, depressed, or hopeless: not at all 3. Trouble falling or staying asleep, or sleeping too much: several days 4. Feeling tired or having little energy: several days 5. Poor appetite or overeating: not at all 6. Feeling bad about yourself - or that you are a failure or have let yourself or your family down: not at all 7. Trouble concentrating on things, such as reading the newspaper or watching television: not at all 8. Moving or speaking so slowly that other people could have noticed. Or the opposite - being so fidgety or restless that you have been moving around a lot more than usual: not at all 9. Thoughts that you would be better off or of hurting yourself in some way: not at all Total score: 2 Depression Screening Interpretation: Negative Depression Screening Done: Yes 31140 - PHQ-9 Billing: Yes Source: Developed by Drs. Son Ochoa, Sierra Gardiner, Sebastien Roblero and colleagues, with an educational barby from [employer]. Thrive Questionnaire Date Thrive assessed: 12/27/24 I am a: Patient What is your living situation today?: I have a steady place to live Within the past 12 months, did the food you bought not last and you didn't have the money to get more?: Never true Within the past 12 months, did you worry whether your food would run out before you got money to buy more?: Never true Do you have trouble paying for medicines?: No Do you have trouble getting transportation to medical appointments?: No Do you have trouble paying your heating and electricity bill?: No Do you have trouble taking care of your child, family member or friend?: No Do you have trouble with day-to-day activities such as bathing, preparing meals, shopping, managing finances, etc.?: No Are you currently unemployed and looking for a job?: No Are you interested in more education?: No Please select the resources that you would like help with: None Currently or been in a relationship where the following occur: No concerns reported THRIVE Score: 0 AUDIT C Alcohol Use Questionnaire (AUDIT-C) 1. How often do you have a drink containing alcohol?: 2-3 times a week 2. How many drinks containing alcohol do you have on a typical day when you are drinking?: 1 or 2 3. How often do you have six or more drinks on one occasion?: Less than monthly Total Score: 4 ELEK-7 AMB Questionnaire ELKE-7 Date ELKE - 7 assessed: 12/27/24 Feeling nervous, anxious, or on edge: 1 = Several days Not being able to stop or control worryin = Several days Worrying too much about different things: 0 = Not at all Trouble relaxin = Several days Being so restless that it is hard to sit still: 1 = Several days Becoming easily annoyed or irritable: 1 = Several days Feeling afraid as if something awful might happen: 0 = Not at all Total ELKE-7 score (0-4 normal; 5-9 mild; 10-14 moderate; 15-21 severe): 5 Source: Developed by Drs. Son Ochoa, Sierra Gardiner, Sebastien Roblero and colleagues, with an educational barby from [employer]. ELKE-7 Assessment Billing ELKE-7 Assessment Tool: ELKE-7 Assessment 22298 Review of Systems Const All systems reviewed & are unremarkable except as noted in HPI and below ENT Reports no additional complaints Card Reports no additional complaints Resp Reports no additional complaints GI Reports no additional complaints Reports no additional complaints Physical exam (Primary Care) Vital Signs: Last Vital Signs Temp 97.9 F 12/27/24 12:32 Pulse 74 12/27/24 12:32 Resp 18 12/27/24 12:32 BP 110/70 12/27/24 12:32 Pulse Ox 96 12/27/24 12:32 Oxygen Delivery Method Room Air 12/27/24 12:32 BMI result Body Mass Index 30.0 Tobacco/Smoking Status: Tobacco use Status Tobacco use date assessed 12/27/24 12/27/24 12:39 Patient Tobacco Use Status Former Tobacco user 12/27/24 12:32 Tobacco use type Cigarette 12/27/24 12:32 e-Cigarette/Vaping Use Never Used 12/27/24 12:32 PHQ-9: PHQ-9 Score PHQ-9: Total score 2 12/27/24 12:39 Depression Screening Interpretation: Negative Thrive Assessment: Date of Thrive Assessment Date Thrive assessed 12/27/24 12/27/24 12:39 Currently or been in a relationship where the following occur: No concerns reported Const General: no acute distress HENMT Head: Yes normal to inspection Mouth: Normal oral and palatal mucosa present Eyes General: appearance normal, both eyes and all related structures Resp Effort & Inspection: normal respiratory effort Auscultation: clear to auscultation bilaterally Cardio Rhythm: regular rhythm Heart sounds: S1 normal heart sound present and S2 normal heart sound present GI Other: Reducible but slightly tender umbilical hernia, Inspection: Yes normal to inspection Palpation (GI): Soft to palpation Percussion: Yes normal to percussion Auscultation: normal bowel sounds Coding Level of Care Code Est Pt Level 4 (70498) Diagnoses BPH associated with nocturia N40.1; R35.1 HTN (hypertension) I10 Hyperlipidemia E78.5 Right flank pain R10.9 Umbilical hernia K42.9 Additional Codes ELKE-7 Assessment Billing - ELKE-7 Assessment Tool: ELKE-7 Assessment 95659 ([id number]) PHQ-9 - 35682 - PHQ-9 Billing: Yes ([id number]) Assessment & Plan Assessment & Plan (1) BPH associated with nocturia: Code(s): N40.1 - Benign prostatic hyperplasia with lower urinary tract symptoms; R35.1 - Nocturia Category: Medical Plan: Add finasteride continue tamsulosin (2) HTN (hypertension): Code(s): I10 - Essential (primary) hypertension Category: Medical Plan: Continue current medications (3) Hyperlipidemia: Code(s): E78.5 - Hyperlipidemia, unspecified Category: Medical Plan: Continue statin (4) Right flank pain: Code(s): R10.9 - Unspecified abdominal pain Category: Medical Plan: Check UA and obtain renal ultrasound to rule out nephrolithiasis (5) Umbilical hernia: Code(s): K42.9 - Umbilical hernia without obstruction or gangrene Category: Medical Plan: Referred to surgeon Orders: Orders PSA,Total (Free>4and<10) Today E78.5 - Hyperlipidemia, unspecified, I10 - Essential (primary) hypertension, N40.1 - Benign prostatic hyperplasia with lower urinary tract symptoms, R35.1 - Nocturia, Z90.2 - Acquired absence of lung [part of] UA w Microscopic Today E78.5 - Hyperlipidemia, unspecified, I10 - Essential (primary) hypertension, N40.1 - Benign prostatic hyperplasia with lower urinary tract symptoms, R35.1 - Nocturia, Z90.2 - Acquired absence of lung [part of] US renal BI Today R10.9 - Unspecified abdominal pain Comprehensive Adams. Panel Fast Today E78.5 - Hyperlipidemia, unspecified, I10 - Essential (primary) hypertension, N40.1 - Benign prostatic hyperplasia with lower urinary tract symptoms, R35.1 - Nocturia, Z90.2 - Acquired absence of lung [part of] Complete Blood Count Auto Diff Today E78.5 - Hyperlipidemia, unspecified, I10 - Essential (primary) hypertension, N40.1 - Benign prostatic hyperplasia with lower urinary tract symptoms, R35.1 - Nocturia, Z90.2 - Acquired absence of lung [part of] Lipid Panel Today E78.5 - Hyperlipidemia, unspecified, I10 - Essential (primary) hypertension, N40.1 - Benign prostatic hyperplasia with lower urinary tract symptoms, R35.1 - Nocturia, Z90.2 - Acquired absence of lung [part of] Referrals General Surgery Referral K42.9 - Umbilical hernia without obstruction or gangrene Medications: New finasteride 5 mg PO DAILY 90 tabs 2RF
--- OUTSIDE RECORDS SUMMARY | 2024-12-27 13:57 | XMS_ITS | Clinical Summary ---
Author Organization [facility] Address [address] [place] [phone] Phone Care Team Providers Care Junior Designer Name Role Phone Stephanie Mcneal MD Primary Care Provider [phone] Surgical History Surgery Date Site/Laterality Comments TONSILLECTOMY PROCEDURE: HISTORICAL TONSILLECTOMY OTHER SURGICAL HISTORY PROCEDURE: AK THORACOSCOPY W/LOBECTOMY SINGLE LOBE Medical History Medical History Date Comments Lung cancer (CMS/HCC) DX:Lung ca ncer ([facility]); COMMENT: right lower lobe Social History Tobacco Use Types Packs/Day Years Used Date Smoking Tobacco: Former Cigarettes Q uit: 04/19/2022 Sex and Gender Information Value Date Recorded Sex Assigned at Not on file Legal Sex Male 4:14 AM EST Gender Identity Not on file Sexual Orientation Not on file Obstetrics History Last Filed Vital Signs Vital Sign Reading Time Taken Comments Blood Pressure 125/80 02/21/2024 10:00 AM EDT Si tting L Arm Pulse 70 02/21/2024 10:00 AM EDT Temperature - - Respiratory Rate - - Oxygen Saturation - - Inhaled Oxygen Concentration - - Weight 108 kg (239 lb) 02/21/2024 10:00 AM EDT Height 188 cm (6' 2 ) 02/21/2024 10:00 AM EDT Body Mass Index 30.69 02/21/2024 10:00 AM EDT Plan of Treatment Health Maintenance Due Date Last Done Comments COVID-19 Vaccine (#1) 1964 DTaP,Tdap,and Td Vaccines (1 - Tdap) 1978 Pneumococcal Vaccine: 50+ Ye ars (1 of 2 - PCV) 1978 Pneumococcal Vaccine: Pediat rics (0 to 5 Years) and At-Risk Patients (6 to 64 Years) (1 of 2 - PCV) 1978 Zoster Vaccines (1 of 2) 1978 Abdominal Aortic Aneurysm (A AA) Screen 10/18/2022 Cholesterol Screening (Lipid Panel) 10/18/2022 Colorectal Cancer Screening: Colonoscopy 10/18/2022 Depression Screening 10/18/2022 Hepatitis C Screening 10/18/2022 Social Influencers of Health Screening 10/18/2022 Hypertension/CHF/CAD Annual BMP Blood Test 10/31/2022 Falls Risk Assessment 2024 Influenza Vaccine (#1) 2024 RSV Immunization Patients 60 + Years Old (1 - 1-dose 75+ series) 2034 HIB Vaccines Aged Out No longer eligi ble based on patient's age to complete this topic HPV Vaccines Aged Out No longer eligi ble based on patient's age to complete this topic Hepatitis A Vaccines Aged Out No long er eligible based on patient's age to complete this topic Hepatitis B Vaccines Aged Out No long er eligible based on patient's age to complete this topic IPV Vaccines Aged Out No longer eligi ble based on patient's age to complete this topic MMR Vaccines Aged Out No longer eligi ble based on patient's age to complete this topic Meningococcal ACWY Vaccine Aged Out N o longer eligible based on patient's age to complete this topic Meningococcal B Vacine Aged Out No lo nger eligible based on patient's age to complete this topic RSV Immunization Patients Un onesimo 20 months Aged Out No longer eligible b ased on patient's age to complete this topic Varicella Vaccines Aged Out No longer eligible based on patient's age to complete this topic Advance Directives Documents on File Type Date Recorded Patient Nurse Anesthesia Program Director Expl anation Health Care Decision (hx) 04/21/2022 AD SAVAGE DIRECTIVE Health Care Decision (hx) 04/21/2022 AD SAVAGE DIRECTIVE Health Care Decision (hx) 04/21/2022 AD SAVAGE DIRECTIVE Care Teams Junior Designer Relationship Specialty Start Date End Date Stephanie Mcneal MD PCP - General Internal Medicine 04/01/22
--- OUTSIDE RECORDS SUMMARY | 2024-12-27 13:57 | XMS_ITS | Data Portability ---
Author Organization [facility], [address] Address [address] [place] [address] Care Team Providers Care All Around Patternmaker Name Role Phone CLARY PITTS Primary Care Provider [phone] Assessment No assessment recorded. Plan of Treatment Reminders Order Date Submit Date Provider Last Modified By Organization Details Last Modified Time Details Appointments None record ed. Lab None record ed. Referral None record ed. Procedures None record ed. Surgeries None record ed. Imaging None record ed. Medication Orders neomyc in-iona ymyxin -hydro brittany 3.5 mg-10, 000 unit/m L-1 % ear drops, susp 023 12/04/19 23 [email or web address] [id number], [address] [facility] Jennifer [place], [address], 4 08:19:26 Patient TargetsNo targets recorded. Patient Instructions Encounter Date Encounter Id Patient Instructions Last Modified By Organization Details Last Modified Time 12/04/2022 [id number] hearing loss: ca re instructions Not available 12/04/2022 17:39:21 To help prevent cerumen impaction you can trial OTC ear drops such as Debrox which helps to soften the wax . Follow instructions of the package. Go to the nearest Emergency Department immediately if your symptoms worsen or if you develop new symptoms that concern you. Increase fluids You should follow-up with your PCP in 7-10 days, or at any time if your condition does not improve or worsens. Any acute change should prompt a visit to the nearest Emergency Department. Not available 12/04/2022 17:39:29 Water in the ear , from swimming or bathing, makes the ear canal prone to infection. Hot and humid weather also predisposes to infection. Symptoms of otitis externa include: ear pain, fullness or itching in the ear, ear drainage, and temporary loss of hearing. These symptoms are similar to those caused by otitis media (middle ear infection). To differentiate between external ear infection and middle ear infection, the provider looks in the ear with an instrument called an otoscope. It is important to distinguish between the two infections, as they are treated differently: External otitis is treated with drops in the ear canal, while middle ear infection is sometimes treated with an antibiotic by mouth. MEASURES YOU SHOULD TAKE TO HELP TREAT EXTERNAL EAR INFECTION: 1. Use the ear drops regularly, as directed on the prescription. 2. The patel to treatment is getting the drops down into the canal and keeping the medicine there. To accomplish this: Lie on your side, with the unaffected ear down. Put three to four drops in the infected ear canal, then gently pull the outer ear back and forth several times, working the medicine deeper into the ear canal. Remain still, itkp-gff-ousv-down for about 15 minutes. 3. Keep the ear as dry as possible. Swimming should be postponed until the infection has cleared. Try to avoid getting water in the ear when bathing. If water does get in the ear, the canal can be gently dried with a hair blow dryer. Use the low heat setting, and keep the blow dryer about six inches from the ear. 4. Hysa-inj-zuaflek pain medications can relieve discomfort associated with external otitis. Acetaminophen (Tylenol), ibuprofen, or naproxen can be taken, depending on individual preference. 5. Return to the [facility] in about one week. The provider can check to make sure the infection has cleared, continue the medicine if needed, okay a return to swimming, etc. 6. To prevent repeated episodes of otitis externa, try to keep the ear canal dry. Gentle swabbing with Q-tips (never deep into the canal), along with a hair blow dryer (low heat), can be used to dry the ear canal if it gets wet. 7. Should you develop severe pain, fever, severe headache, or stiff neck, see your personal/referral doctor or go to the closest emergency department promptly. Otitis externa does not normally cause these symptoms; another problem, requiring different treatment, could be present kana Not available 12/04/2022 17:39:38 07/15/2024 [id number] earwax blockage: care instructions [email or web address] Not available 07/15/2024 08:40:20 Reason for Referral None Reported. Problems Name Problem SNOMED Code Status Onset Date Resolution Date Notes Provider Name and Address Organization Details Recorded Time Prostatitis 9473082 Active Meredith Shedd null, PA - [facility] 4 08:20:28 Hypertensive disorder 65685667 Active 2022 Wendy Sean null, PA - [facility] 3 16:53:41 Hyperlipidemia 20417807 Active 2022 Wendy Murphy null, PA - [facility] 3 16:53:46 Problem Notes None recorded. Procedures Surgical History Date Name Laterality Status Provider Name and Address Organization Details Recorded Time 4 Cerumen Removal by Irrigation completed Ltaonia Méndez MD [address] [place] [address] [place], [address], PA - [facility] 07/15/2024 10:19:51 3 Cerumen Removal by Irrigation completed Wendy Murphy PA - [facility] 12/04/2022 17:55:01 operation on lung completed Wendy Murphy PA - [facility] 12/04/2022 16:54:25 Imaging Results None recorded. Procedure Notes None recorded. Medical Equipment None Reported. Allergies Allergen ID Allergen Name Allergen Category Reaction Reaction Severity Criticality Documentation Date Start Date Code Code System Note Provider Name and Address Organization Details Recorded Time 560997 Substance with morphinan structure and opioid receptor agonist mechanism of action (substanc e) medicatio n abdominal pain Not available low 12/04/2022 05873 9000 SNOMED Wendy Murphy null, PA - [facility] 3 16:52:08 Medications Name Sig Start Date Stop Date Status Note LastModified by Organization Details LastModified Time atorvastati n 20 mg tablet TAKE 1 TABLET BY MOUTH EVERY DAY AT BEDTIME active Not Available Not Available No t Available meloxicam 15 mg tablet TAKE 1 TABLET BY MOUTH EVERY DAY 12/04 completed Not Available Not Available Not Available amlodipine 5 mg tablet TAKE 1 TABLET BY MOUTH EVERY DAY active Not Available Not Available No t Available hydromorpho ne 2 mg tablet 12/04 completed Not Available Not Available Not Available tamsulosin 0.4 mg capsule TAKE 1 CAPSULE BY MOUTH EVERY DAY FOR 90 DAYS active Not Available Not Available No t Available Gentle Laxative (bisacodyl) 5 mg tablet,isak yed release TAKE 4 TABLETS BY MOUTH ONCE AT NOON THE DAY BEFORE YOUR COLONOSCO PY active Not Available Not Available No t Available docusate sodium 100 mg capsule 12/04 completed Not Available Not Available Not Available benazepril 10 mg tablet TAKE 1 TABLET BY MOUTH EVERY DAY active Not Available Not Available No t Available neomycin-po lymyxin-hyd rocort 3.5 mg-10,000 unit/mL-1 % ear drops,susp INSTILL 4 DROPS INTO AFFECTED EAR(S) BY OTIC ROUTE 3 TIMES PER DAY 07/15 completed Not Available Not Available Not Available multivitami n active Not Available Not Available Not Available Gavilax 17 gram/dose oral powder MIX AND DRINK 238 GRAMS BY MOUTH ONCE DIRECTED BY GASTROENT EROLOGY DEPARTMEN T AT [facility] 07/15 completed Not Available Not Available Not Available Tamika-nadya 8.6 mg tablet 12/04 completed Not Available Not Available Not Available Vitals Date Recorded Body height Body mass index (BMI) Body weight Oxygen saturation Oxygen saturation in Arterial blood by Pulse oximetry Heart rate Respiratory rate Body temperature Systolic blood pressure Diastolic blood pressure Provider Name and Address Organization Details Last Updated DateTime 3 187.96 cm 27.6 kg/m2 96501.3 6 g 99 % 99 % 78 /min 20 /min 98.2 [degF] 129 mm[Hg] 80 mm[Hg] Wendy Estrada PA - [facility] 3 16:55:34 Date Recorded Body height Body mass index (BMI) Body weight Pain severity - 0-10 verbal numeric rating [Score] - Reported Body temperature Respiratory rate Oxygen saturation Oxygen saturation in Arterial blood by Pulse oximetry Heart rate Systolic blood pressure Diastolic blood pressure Provider Name and Address Organization Details Last Updated DateTime 4 187.96 cm 27.6 kg/m2 25424.3 6 g 0 97.2 [degF] 14 /min 100 % 100 % 66 /min 158 mm[Hg] 95 mm[Hg] Meredith Shedd PA - [facility] 08:27:31 Social History Question Answer Notes LastModified by Organizat ion Details LastModified Time Tobacco Smoking Status Former Smoker Wendy seay PA - [facility] 12/04/2022 16:54:30 What Is Your Level Of Alcohol Consumption? Occasional Information not available 12/04/2022 How Many Times Per Week Do You Consume Alcohol? <1 Time Per Week Information not available 12/04/2022 Have You Had A Flu Shot This Season? No [email or web address] Information not available 07/15/2024 Have You Had Direct Contact, Or Contact During Intimacy, With Monkeypox Rash, Scabs, Or Body Fluids From A Person With Monkeypox? No Information not available 12/04/2022 Do You Use Any Illicit Or Recreational Drugs? No Information not available 12/04/2022 Have You Recently Traveled Abroad? No Information not available 12/04/2022 Do You Or Have You Ever Used Any Other Forms Of Tobacco Or Nicotine? No Information not available 12/04/2022 Sex: Unknown Functional Status None recorded. Mental Status None recorded. Family History Relationship Description Onset Age of this Age Resolved Age Notes LastModified by Organization Details LastModified Time Father No current problems or disability Not available 12/04 16:54:00 Mother No current problems or disability Not available 12/04 16:54:00 Medical History No medical history recorded. Immunizations Vaccine Type Date Status Note Provider Nam e and Address Organization Details Recorded Time COVID-19, mRNA, LNP-S, PF, 100 mcg/0.5mL dose or 50 mcg/0.25mL dose 03/20/2021 completed Wendy seay PA - [facility] 12/04/2022 16:51:54 COVID-19, mRNA, LNP-S, PF, 100 mcg/0.5mL dose or 50 mcg/0.25mL dose 11/22/2021 completed Wendy seay PA - [facility] 12/04/2022 16:51:54 COVID-19, mRNA, LNP-S, PF, 100 mcg/0.5mL dose or 50 mcg/0.25mL dose 02/19/2021 completed Wendyascencion seay, PA - [facility] 12/04/2022 16:51:54 Tdap 09/16/2016 completed Wendy Murphy null, PA - [facility] 12/04/2022 16:51:54 Past Encounters Encounter ID Performer Location Encounter Start Date Encounter Closed Date Diagnosis/Indication Diagnosis SNOMED-CT Code Diagnosis ICD10 Code Diagnosis Note [id number] [address] [facility] [place] [address] 11/29/2021 08:06:54 11/29/2021 09:17:52 [id number] [address] [place] [address] [place] [address] 12/09/2021 13:03:40 12/09/2021 14:46:38 [id number] [address] [place] [address] 10/04/2018 16:15:53 10/04/2018 18:33:33 [id number] [address] [facility] [place] [address] 01/20/2021 17:09:06 01/20/2021 18:52:23 [id number] [address] [facility] [place] [address] 10/05/2019 15:51:51 10/05/2019 17:14:02 [id number] [address] [facility] [place] [address] 03/23/2021 09:15:36 03/23/2021 09:34:24 [id number] [address] [place] [address] 02/09/2021 17:31:56 02/09/2021 18:40:24 [id number] Sina Peterson NP [address] [facility] [place] [address] 12/04/2022 15:48:29 12/04/2022 18:02:51 Impacted cerumen of bilateral ears [id number] 639913 H61.23 Otitis ext juanjose of bilateral ears 0938586273 448982 H60.93 [id number] Latonia Méndez MD [address] [facility] [address] [place] [address] 07/15/2024 08:10:33 07/15/2024 08:51:31 Impacted cerumen of bilateral ears 8070444375 253555 H61.23 o complicati ons, wax completely removed Health Concerns Section Related Observation LastModified by Organization Detai ls LastModified Time None Recorded Concern Status LastModified by Organization Details LastModified Time None Recorded Advance Directives Directive None Recorded Payers Encounter Date Sequence Insurance Name Policy Number Policy Youngblood Covered Member ID Youngblood Member ID Guarantor Name 03/23/2021 1 [place] ([facility]) [id number] Abel Cunningham [id number] Abel Cunningham 11/29/2021 1 [place] [id number] Abel Cunningham [id number] Abel Cunningham 12/09/2021 1 [place] ([facility]) [id number] Abel Cunningham [id number] Abel Cunningham 12/04/2022 1 [place] ([facility]) [id number] Abel Cunningham [id number] Abel Cunningham 07/15/2024 1 [place]MEDICARE [place]PLACEMENT PPO) [id number] Abel Cunningham [id number] Abel Cunningham 07/15/2024 2 [place] [employer] Abel Cunningham [id number] Abel Cunningham Notes Date Note Type Note Provider Name and Address Organization Details Recorded Time 3 text/html Ear problem UCReported bypatient.Notes:cerumen impaction bilateral ears .develop decrease hearing and pain. denies any fever or fever with chills. Sina Peterson NP [address] [place], [address], PA - [facility] 12/04/2022 18:02:24 text/html Ear problem UCReported bypatient.source of patient informationInformation obtained from patient Location:bilateral Quality:clogged;decreased hearing Severity:moderate Context:no sick contacts; no recent swimming/water in ear; no recent air travel Modifying Factors:does not hurt to lie on, or pull on ear; does not hurt to chew Latonia Méndez MD [address] [place], [address], PA [facility] 07/15/2024 10:20:23
== END 2024-12-27 14:03 | disposition home or self-care (01) ==
PROVIDERS: PCP Internal Medicine; Visit Provider Internal Medicine
DX: N40.1 Benign prostatic hyperplasia with lower urinary tract symptoms (principal); R35.1 Nocturia; I10 Essential (primary) hypertension; E78.5 Hyperlipidemia, unspecified; R10.9 Unspecified abdominal pain; K42.9 Umbilical hernia without obstruction or gangrene

== ENCOUNTER → 2024-12-27 12:31 | Outpatient (BNVA) | payer BC, MEDICARE, SELFPAY | PROVIDERS: PCP Internal Medicine; Visit Provider Internal Medicine | DX: R10.9 Unspecified abdominal pain (principal); N40.1 Benign prostatic hyperplasia with lower urinary tract symptoms; R35.1 Nocturia; I10 Essential (primary) hypertension; E78.5 Hyperlipidemia, unspecified; K42.9 Umbilical hernia without obstruction or gangrene; Z79.899 Other long term (current) drug therapy | CPT/HCPCS: 96127; 99212 ==

== ENCOUNTER 2025-01-06 08:46 | Outpatient (REF) | payer MEDICARE, SELFPAY ==
--- OUTSIDE RECORDS SUMMARY | 2025-01-06 08:48 | XMS_ITS | Data Portability ---
Author Organization [facility], [address] Address [address] [place] [address] Care Team Providers Care Computer Aided Drafter Name Role Phone CLARY PITTS Primary Care Provider Assessment No assessment recorded. Plan of Treatment [...] drops, susp 023 12/04/19 23 [email or web address] [id number], [address] [facility] [place], [address], 4 08:19:26 Patient TargetsNo targets recorded. Patient Instructions Encounter Date Encounter Id Patient Instructions Last Modified By Organization Details Last Modified Time 12/04/2022 [id number] hearing loss: ca re instructions Not available [...] deeper into the ear canal. Remain still, vkkf-eyl-ubun-down for about 15 minutes. 3. Keep the [...] about six inches from the ear. 4. Rmkr-pdb-ggqgxbr pain medications can relieve discomfort associated with external otitis. Acetaminophen (Tylenol), ibuprofen, or naproxen can be taken, depending on individual preference. 5. Return to the [facility] in about one week. The provider can [...] present kana Not available 12/04/2022 17:39:38 07/15/2024 [id number] earwax blockage: care instructions [email or web address] Not available 07/15/2024 08:40:20 Reason for Referral None Reported. Problems Name Problem SNOMED Code Status Onset Date Resolution Date Notes Provider Name and Address Organization Details Recorded Time Prostatitis 8184252 Active Meredith Conley null, PA - [facility] 4 08:20:28 Hypertensive disorder 27618039 Active 2022 Wendy Sean null, PA - [facility] 3 16:53:41 Hyperlipidemia 89473792 Active 2022 Wendy Readfield null, PA - [facility] 3 16:53:46 Problem Notes None recorded. Procedures Surgical History Date Name Laterality Status Provider Name and Address Organization Details Recorded Time 4 Cerumen Removal by Irrigation completed Latonia Méndez MD [address] [place] [address] [place], [address], PA - [facility] 07/15/2024 10:19:51 3 Cerumen Removal by Irrigation completed Wendy Readfield PA - [facility] 12/04/2022 17:55:01 operation on lung completed Wendy Readfield PA - [facility] 12/04/2022 16:54:25 Imaging Results None recorded. Procedure Notes None recorded. Medical Equipment None Reported. Allergies Allergen ID Allergen Name Allergen Category Reaction Reaction Severity Criticality Documentation Date Start Date Code Code System Note Provider Name and Address Organization Details Recorded Time 584515 Substance with morphinan structure and opioid receptor agonist mechanism of action (substanc e) medicatio n abdominal pain Not available low 12/04/2022 72156 9000 SNOMED Wendy Readfield null, PA - [facility] 3 16:52:08 [...] DIRECTED BY GASTROENT EROLOGY DEPARTMEN T AT [facility] 07/15 completed Not Available Not Available Not [...] Updated DateTime 3 187.96 cm 27.6 kg/m2 10403.3 6 g 99 % 99 % 78 [...] Updated DateTime 4 187.96 cm 27.6 kg/m2 96563.3 6 g 0 97.2 [degF] 14 /min 100 % 100 % 66 /min 158 mm[Hg] 95 mm[Hg] Meredith Conley PA - [facility] 08:27:31 Social History [...] [facility] 12/04/2022 16:51:54 Tdap 09/16/2016 completed Wendy Readfield null, PA - [facility] 12/04/2022 16:51:54 Past Encounters Encounter ID Performer Location Encounter Start Date Encounter Closed Date Diagnosis/Indication Diagnosis SNOMED-CT Code Diagnosis ICD10 Code Diagnosis Note [id number] [address] [facility] [place] [address] 11/29/2021 08:06:54 11/29/2021 09:17:52 [id number] [address] [place] [address] [place] [address] 12/09/2021 13:03:40 12/09/2021 14:46:38 [id number] [address] [place] [address] 10/04/2018 16:15:53 10/04/2018 18:33:33 [id number] [address] [facility] [address] 01/20/2021 17:09:06 01/20/2021 18:52:23 [id number] [address] [facility] [address] 10/05/2019 15:51:51 10/05/2019 17:14:02 [id number] [address] [facility] [place] [address] 03/23/2021 09:15:36 03/23/2021 09:34:24 [id number] [address] [place] [address] 02/09/2021 17:31:56 02/09/2021 18:40:24 [id number] Sina Peterson NP [address] [place] [address] 12/04/2022 15:48:29 12/04/2022 18:02:51 Impacted cerumen of bilateral ears [id number] 603489 H61.23 Otitis ext juanjose of bilateral ears 2657981386 031758 H60.93 [id number] Latonia Méndez [facility] [address] [facility] [address] [facility] [place] [address] 07/15/2024 08:10:33 07/15/2024 08:51:31 Impacted cerumen of bilateral ears 4091945949 066585 H61.23 o complicati ons, wax completely removed Health Concerns Section Related Observation LastModified by Organization Detai ls LastModified Time None Recorded Concern Status LastModified by Organization Details LastModified Time None Recorded Advance Directives Directive None Recorded Payers Encounter Date Sequence Insurance Name Policy Number Policy Youngblood Covered Member ID Youngblood Member ID Guarantor Name 03/23/2021 1 [place] ([facility]) [id number] Abel Cunningham [id number] Able Cunningham 11/29/2021 1 [place] ([place]) [id number] Abel Cunningham [id number] Abel Cunningham 12/09/2021 1 [place] ([facility]) [id number] Abel Cunningham [id number] Abel Cunningham 12/04/2022 1 [place] ([facility]) [id number] Abel Cunningham [id number] Abel Cunningham 07/15/2024 1 [place] (MEDICARE [place]PLACEMENT PPO) [id number] Abel Cunningham [id number] Abel Cunningham 07/15/2024 2 [place] [employer] Abel Cunningham [id number] Abel Cunningham Notes Date Note Type Note Provider Name and Address Organization Details Recorded Time 3 text/html Ear problem UCReported bypatient.Notes:cerumen impaction bilateral ears .develop decrease hearing and pain. denies any fever or fever with chills. Sina Peterson NP [address] [place], [address], PA - [facility] 12/04/2022 18:02:24 text/html Ear problem UCReported bypatient.source of patient informationInformation obtained from patient Location:bilateral Quality:clogged;decreased hearing Severity:moderate Context:no sick contacts; no recent swimming/water in ear; no recent air travel Modifying Factors:does not hurt to lie on, or pull on ear; does not hurt to chew Latonia Méndez MD [address] [place], [address], PA [facility] 07/15/2024 10:20:23
[2025-01-06 09:17] LABS: MANUAL DIFF FLAG NO
[2025-01-06 10:16] LABS: Eosinophils Absolute Auto 0.1 X10*3/uL (0.0-0.4); Eosinophils Percent Auto 3.6 % (0-4); Hematocrit 41.3 % (42.0-52.0); Hemoglobin 13.5 g/dl (14.0-18.0); Imm Gran Abs Auto 0.01 X10*3/uL (0.00-0.03); Imm Gran Pct Auto 0.3 % (0.0-0.4); Mean Corpuscular HGB Conc 32.7 g/dl (31.0-36.0); Mean Corpuscular Hemoglobin 29.9 pg (27.0-33.0); Mean Corpuscular Volume 91.4 fL (80.0-98.0); Mean Platelet Volume 9.6 fL (9.4-12.4); Monocytes Absolute Auto 0.4 X10*3/uL (0.1-1.2); Monocytes Percent Auto 10.1 % (2-11); Neutrophils Absolute Auto 2.3 x10*3/uL (2.0-8.3); Platelet Count 232 X10*3/uL (160-400); Red Blood Count 4.52 X10*6/uL (4.60-5.80); Red Cell Distribution Width 12.3 % (11.0-16.0); White Blood Count 3.9 X10*3/uL (4.8-10.8)
[2025-01-06 10:36] LABS: Alanine Aminotransferase 13 U/L (0-40); Albumin Level 4.3 g/dL (3.5-5.0); Alkaline Phosphatase 71 U/L (39-117); Anion Gap 11 (12-20); Aspartate Amino Transferase 24 U/L (5-37); Bilirubin Total 0.8 mg/dL (0.0-1.0); Blood Urea Nitrogen 10 mg/dL (9-16); Calcium 9.2 mg/dL (8.4-10.2); Carbon Dioxide 26 mmol/L (22-29); Chloride 109 mmol/L (96-108); Cholesterol 135 mg/dL (<200); Estimated Glomerular Filt Rate > 60; Glucose Fasting 92 mg/dL (60-99); HDL Cholesterol 46 mg/dL (>40); LDL Cholesterol Calculated 80 mg/dL (<100); Potassium 4.7 mmol/L (3.3-5.1); Sodium 141 mmol/L (135-145); Total Protein 7.1 g/dL (6.5-8.0); Triglycerides 47 mg/dL (<150)
[2025-01-06 10:39] LABS: Appearance Urine Clear; Color Urine Yellow; Glucose Urine UA Negative (Negative); Leukocyte Esterase Urine Negative (Negative); Nitrite Urine Negative (Negative); PH 5.5 (5.0-9.0); Urine Blood Negative (Negative); Urine Ketones Negative (Negative); Urine Protein Negative (Neg-Trace)
[2025-01-06 10:44] LABS: Bacteria Urine None Seen (None Seen); Hyaline Casts Urine 0-2 /LPF (0-2); RBC Urine 0-2 /HPF (0-2); Squamous Epithelial Cell Urine 0-2 /HPF (0-2); WBC Urine 0-5 /HPF (0-5)
[2025-01-06 10:47] LABS: PSA,Total (Free>4and<10) 0.81 ng/mL (0.00-4.00)
== END 2025-01-06 08:47 | disposition home or self-care (01) ==
LOC: HO.LAB 08:46
PROVIDERS: PCP Internal Medicine; Visit Provider Internal Medicine
DX: E78.5 Hyperlipidemia, unspecified (principal); N40.1 Benign prostatic hyperplasia with lower urinary tract symptoms; R35.1 Nocturia; Z90.2 Acquired absence of lung [part of]; I10 Essential (primary) hypertension; Z12.5 Encounter for screening for malignant neoplasm of prostate
CPT/HCPCS: 36415; 80053; 80061; 81001; 84153; 85025

== ENCOUNTER 2025-01-18 09:31 | Outpatient (AMB) | payer MEDICARE, SELFPAY ==
[2025-01-18 09:38] VITALS: BP 118/78; PULSE 79; RESP 20; TEMP 37; O2SAT 96; BMI 30.2
--- NOTE | 2025-01-18 09:38 | A.OFFPC_ITS ---
Vital Signs 01/18/25 09:38 Height 6 ft 2 in Weight 235 lb BMI 30.2 BP 118/78 Blood Pressure Location Lt brachial Position Sitting Respiration 20 Pulse 79 Pulse Source Pulse Oximeter Temp 98.6 F Temp Source Oral Pulse Oximetry (%) 96 Oxygen Delivery Method Room Air Intake Visit Reasons: PE Intake Note: Pt is here today for PE. Allergies oxycodone [OXYCODONE] Allergy (Severe, Verified 01/18/25 12:58) SEVERE N/V Medication List - Last Reconciled 01/18/25 by Stephanie Mcneal MD amlodipine 5 mg PO DAILY atorvastatin 20 mg PO BEDTIME benazepril 10 mg PO DAILY finasteride 5 mg PO DAILY meclizine 25 mg PO TID PRN sildenafil 100 mg PO ONCE PRN 30 days tamsulosin 0.4 mg PO DAILY 90 days Tobacco use date assessed: 01/18/25 Fall risk assessment: No Falls in past year Last assessed Fall Risk: 01/18/25 Dental Screening Dental Screen Date: 01/18/25 Did you have a dental visit in the last 12 months?: No Did you have a dental problem in the last 6 months where you did not have access to dental care?: No Was dental information given to patient?: Patient declined HPI PE HPI Details Pt presents for PE. [facility] Medical History Diverticulosis Tubular adenoma Sleep apnea Carcinoid tumor of lung (~2021) Personal history of nicotine dependence Tubular adenoma of colon (~2018) Glaucoma Left shoulder tendinitis Umbilical hernia Hyperlipidemia HTN (hypertension) Surgical History History of lobectomy of lung (~2021) History of bronchoscopy (~2021) History of left hip replacement (~2015) History of nasal polypectomy (~2005) History of colonoscopy (~2019) History of tonsillectomy and adenoidectomy Family History Father Leukemia Mother Alzheimer's dementia Brother No problems noted. Brother No problems noted. Sister No problems noted. Sister No problems noted. Social History Household Members Other:: smokes 1/2 PPD Housing: Condominium Alcohol intake: current Alcohol intake frequency: a few times a week Patient Tobacco Use Status: Former Tobacco user Tobacco use type: Cigarette Cigarette Packs Per Day: 0.5 Cigarettes Per Day: 10 Years Smoked: 40 e-Cigarette/Vaping Use: Never Used service: No Current occupational status: employed Current occupational exposures/hazards: No Cognitive needs: No Hearing needs: No Vision needs: Yes Questionnaire Thrive Questionnaire Date Thrive assessed: 12/24/24 I am a: Patient What is your living situation today?: I have a steady place to live Within the past 12 months, did the food you bought not last and you didn't have the money to get more?: Never true Within the past 12 months, did you worry whether your food would run out before you got money to buy more?: Never true Do you have trouble paying for medicines?: No Do you have trouble getting transportation to medical appointments?: No Do you have trouble paying your heating and electricity bill?: No Do you have trouble taking care of your child, family member or friend?: No Do you have trouble with day-to-day activities such as bathing, preparing meals, shopping, managing finances, etc.?: No Are you currently unemployed and looking for a job?: No Are you interested in more education?: No Please select the resources that you would like help with: None Currently or been in a relationship where the following occur: No concerns reported THRIVE Score: 0 ELKE-7 AMB Questionnaire ELKE-7 Date ELKE - 7 assessed: 12/27/24 Source: Developed by Drs. Son Ochoa, Sierra Gardiner, Sebastien Roblero and colleagues, with an educational barby from [employer]. Review of Systems Const All systems reviewed & are unremarkable except as noted in HPI and below Reports no additional complaints Eyes Reports no additional complaints ENT Reports no additional complaints Card Reports no additional complaints Resp Reports no additional complaints GI Reports no additional complaints Reports no additional complaints Physical exam (Primary Care) Vital Signs: Last Vital Signs Temp 98.6 F 01/18/25 09:38 Pulse 79 01/18/25 09:38 Resp 20 01/18/25 09:38 BP 118/78 01/18/25 09:38 Pulse Ox 96 01/18/25 09:38 Oxygen Delivery Method Room Air 03/06/25 09:38 BMI result Body Mass Index 30.2 Tobacco/Smoking Status: Tobacco use Status Tobacco use date assessed 01/18/25 01/18/25 09:47 Patient Tobacco Use Status Former Tobacco user 01/18/25 09:39 Tobacco use type Cigarette 01/18/25 09:39 e-Cigarette/Vaping Use Never Used 01/18/25 09:39 Thrive Assessment: Date of Thrive Assessment Date Thrive assessed 12/24/24 01/18/25 09:39 Currently or been in a relationship where the following occur: No concerns reported Const General: no acute distress HENMT Head: Yes normal to inspection Ears: hearing grossly normal bilaterally Face and sinus: Yes normal facial exam Mouth: Normal oral and palatal mucosa present Throat: Yes posterior oropharynx normal Eyes General: appearance normal, both eyes and all related structures Neck Neck: Yes no lymphadenopathy and Yes supple Resp Effort & Inspection: normal respiratory effort Auscultation: clear to auscultation bilaterally Cardio Rhythm: regular rhythm Heart sounds: S1 normal heart sound present and S2 normal heart sound present GI Inspection: Yes normal to inspection Palpation (GI): Soft to palpation Percussion: Yes normal to percussion Auscultation: normal bowel sounds Coding Level of Care Code Est Pt Prev Care >65y(58564) Diagnoses Anemia D64.9 HTN (hypertension) I10 Hyperlipidemia E78.5 Annual physical exam Z00.00 Assessment & Plan Assessment & Plan (1) Anemia: Code(s): D64.9 - Anemia, unspecified Category: Medical Plan: Repeat CBC B12 and iron count in 1 month (2) HTN (hypertension): Code(s): I10 - Essential (primary) hypertension Category: Medical Plan: Continue current medications (3) Hyperlipidemia: Code(s): E78.5 - Hyperlipidemia, unspecified Category: Medical Plan: Continue statin (4) Annual physical exam: Code(s): Z00.00 - Encounter for general adult medical examination without abnormal findings Category: Medical Plan: Well-balanced diet regular physical activity discussed with the patient he is up-to-date with colonoscopy. Orders: Orders Vitamin B12 and Folate 1 Month D64.9 - Anemia, unspecified Comprehensive [place]. Panel Fast 1 Year D64.9 - Anemia, unspecified, E78.5 - Hyperlipidemia, unspecified, I10 - Essential (primary) hypertension, Z00.00 - Encounter for general adult medical examination without abnormal findings PSA,Total (Free>4and<10) 1 Year D64.9 - Anemia, unspecified, E78.5 - Hyperlipidemia, unspecified, I10 - Essential (primary) hypertension, Z00.00 - Encounter for general adult medical examination without abnormal findings Complete Blood Count Auto Diff 1 Month D64.9 - Anemia, unspecified IRON PROFILE 1 Month D64.9 - Anemia, unspecified Complete Blood Count Auto Diff 1 Year D64.9 - Anemia, unspecified, E78.5 - Hyperlipidemia, unspecified, I10 - Essential (primary) hypertension, Z00.00 - Encounter for general adult medical examination without abnormal findings Lipid Panel 1 Year D64.9 - Anemia, unspecified, E78.5 - Hyperlipidemia, unspecified, I10 - Essential (primary) hypertension, Z00.00 - Encounter for general adult medical examination without abnormal findings UA w Microscopic 1 Year D64.9 - Anemia, unspecified, E78.5 - Hyperlipidemia, unspecified, I10 - Essential (primary) hypertension, Z00.00 - Encounter for general adult medical examination without abnormal findings Medications: Refilled meclizine 25 mg PO TID PRN 10 tabs 0RF dizziness amlodipine 5 mg PO DAILY 90 tabs 3RF atorvastatin 20 mg PO BEDTIME 90 tabs 3RF benazepril 10 mg PO DAILY 90 tabs 3RF tamsulosin 0.4 mg PO DAILY 90 days 90 caps 3RF N40.1 - Benign prostatic hyperplasia with lower urinary tract symptoms, R35.1 - Nocturia
--- OUTSIDE RECORDS SUMMARY | 2025-01-18 10:46 | XMS_ITS | Clinical Summary ---
Author Organization [facility] Address [address] [place] [phone] Phone Care Team Providers Care Lozenge Maker Helper Name Role Phone Physician, No Pcp Primary Care Provider Unavaila ble Allergies Active Allergy Reactions Criticality Noted Date Comments Oxycodone Nausea And Vomiting 05/04/2022 Medications acetaminophen (TYLENOL 8 HOUR ORAL) Take by mouth. Active multivit-min/iron /folic acid/K (ADULTS MULTIVITAMIN ORAL) Take by mouth. Active amLODIPine (NORVASC) 5 mg tablet Take 5 mg by mouth daily. Active atorvastatin (LIPITOR) 20 mg tablet Take 20 mg by mouth daily. Active benazepriL (LOTENSIN) 10 mg tablet Take 10 mg by mouth daily. Active meclizine (ANTIVERT) 25 mg tablet Take by mouth. Active tamsulosin (FLOMAX) 0.4 mg 24 hr capsule Take 0.4 mg by mouth daily. Take 30 mins after same meal every day. Active Active Problems Problem Noted Date Diagnosed Date Benign prostatic hyperplasia 05/04/2022 Hyperlipidemia 05/04/2022 Hypertension 05/04/2022 Osteoarthritis 05/04/2022 Surgical History Surgery Date Site/Laterality Comments TONSILLECTOMY PROCEDURE: HISTORICAL TONSILLECTOMY OTHER SURGICAL HISTORY PROCEDURE: CT THORACOSCOPY W/LOBECTOMY SINGLE LOBE Medical History Medical History Date Comments Lung cancer (CMS/HCC) DX:Lung ca ncer (HCC); COMMENT: right lower lobe Social History Tobacco Use Types Packs/Day Years Used Date Smoking Tobacco: Former Cigarettes Q uit: 04/19/2022 Sex and Gender Information Value Date Recorded Sex Assigned at Male 01/09/2025 8:12 AM EST Legal Sex Male 4:14 AM EST Gender Identity Male 01/09/2025 8:12 AM EST Sexual Orientation Straight 01/09/2025 8: 12 AM EST Obstetrics History Last Filed Vital Signs Vital [...] 02/21/2024 10:00 AM EDT Plan of Treatment Upcoming Encounters Date Type Department Care Team (Late st Contact Info) Description 02/13/2025 7:15 AM EDT Appointment [facility] CT Scan [address] [place] [phone] 02/21/2025 2:30 PM EDT Office Visit Thoracic Surgery - [place] [address] [facility] [address] [place] [phone] Adelfo Borja PA [address] [address] Health Maintenance Due Date Last Done Comments [...] Depression Screening 10/18/2022 Hepatitis C Screening 10/18/2022 Medicare Annual Wellness Visit 10/18/2022 Social Influencers of Health Screening 10/18/2022 [...] on patient's age to complete this topic Insurance [place] MEDICARE ADVANTAGE Advance Directives Documents on File Type Date Recorded Patient Pipe Fitter Ammonia Expl anation Health Care Decision (hx) 04/21/2022 AD SAVAGE DIRECTIVE Health Care Decision (hx) 04/21/2022 AD SAVAGE DIRECTIVE Health Care Decision (hx) 04/21/2022 AD SAVAGE DIRECTIVE Care Teams Lozenge Maker Helper Relationship Specialty Start Date End Date Physician, No Pcp PCP - General 01/09/25
--- OUTSIDE RECORDS SUMMARY | 2025-01-18 10:47 | XMS_ITS | Data Portability ---
Author Organization [facility] [address] Address [address] [place] [address] Care Team Providers Care Nurse Practitioner Per Diem Name Role Phone CLARY PITTS Primary Care Provider [phone] Assessment No assessment recorded. Plan of Treatment [...] drops, susp 023 12/04/19 23 [email or web address] [id number], [address] [facility] Jennifer Fletcher [place], [address], 4 08:19:26 Patient TargetsNo targets recorded. Patient Instructions Encounter Date Encounter Id Patient Instructions Last Modified By Organization Details Last Modified Time 12/04/2022 [id number] hearing loss: ca re instructions Not available [...] deeper into the ear canal. Remain still, fucf-rjd-kyik-down for about 15 minutes. 3. Keep the [...] about six inches from the ear. 4. Fmrh-lpv-vcaykol pain medications can relieve discomfort associated with external otitis. Acetaminophen (Tylenol), ibuprofen, or naproxen can be taken, depending on individual preference. 5. Return to the [facility] [place] in about one week. The provider can [...] present kana Not available 12/04/2022 17:39:38 07/15/2024 [id number] earwax blockage: care instructions [email or web address] Not available 07/15/2024 08:40:20 Reason for Referral None Reported. Problems Name Problem SNOMED Code Status Onset Date Resolution Date Notes Provider Name and Address Organization Details Recorded Time Prostatitis 9026203 Active Meredith Benbrook null, PA - [facility] 4 08:20:28 Hypertensive disorder 44358377 Active 2022 Wendy Sean null, PA - [facility] 3 16:53:41 Hyperlipidemia 55288232 Active 2022 Wendy Sean null, PA - [facility] 3 16:53:46 Problem Notes None recorded. Procedures Surgical History Date Name Laterality Status Provider Name and Address Organization Details Recorded Time 4 Cerumen Removal by Irrigation completed Latonia Méndez MD [address] [place] [address] [place], [phone], PA - [facility] 07/15/2024 10:19:51 3 Cerumen Removal by Irrigation completed Wendy Sean PA - [facility] 12/04/2022 17:55:01 operation on lung completed Wendy Sean PA - [facility] 12/04/2022 16:54:25 Imaging Results None recorded. Procedure Notes None recorded. Medical Equipment None Reported. Allergies Allergen ID Allergen Name Allergen Category Reaction Reaction Severity Criticality Documentation Date Start Date Code Code System Note Provider Name and Address Organization Details Recorded Time 762339 Substance with morphinan structure and opioid receptor agonist mechanism of action (substanc e) medicatio n abdominal pain Not available low 12/04/2022 12741 9000 SNOMED Wendy Sean null, PA - [facility] 3 16:52:08 [...] DIRECTED BY GASTROENT EROLOGY DEPARTMEN T AT [facility] 07/15 completed Not Available Not Available Not [...] Updated DateTime 3 187.96 cm 27.6 kg/m2 90858.3 6 g 99 % 99 % 78 [...] Updated DateTime 4 187.96 cm 27.6 kg/m2 60168.3 6 g 0 97.2 [degF] 14 /min 100 % 100 % 66 /min 158 mm[Hg] 95 mm[Hg] Meredith Benbrook PA - [facility] 08:27:31 Social History [...] [facility] 12/04/2022 16:51:54 Tdap 09/16/2016 completed Wendy Sean null, PA - [facility] 12/04/2022 16:51:54 Past Encounters Encounter ID Performer Location Encounter Start Date Encounter Closed Date Diagnosis/Indication Diagnosis SNOMED-CT Code Diagnosis ICD10 Code Diagnosis Note [id number] [address] [facility] [place] [address] 11/29/2021 08:06:54 11/29/2021 09:17:52 [id number] [address] [place] [address] [place] [address] 12/09/2021 13:03:40 12/09/2021 14:46:38 [id number] [address] [place] [address] 10/04/2018 16:15:53 10/04/2018 18:33:33 [id number] [address] [facility] [address] 01/20/2021 17:09:06 01/20/2021 18:52:23 [id number] [address] [facility] [address] 10/05/2019 15:51:51 10/05/2019 17:14:02 [id number] [address] [facility] [address] 03/23/2021 09:15:36 03/23/2021 09:34:24 [id number] [address] [place] [address] 02/09/2021 17:31:56 02/09/2021 18:40:24 [id number] Sina Peterson NP [address] [place] [address] 12/04/2022 15:48:29 12/04/2022 18:02:51 Impacted cerumen of bilateral ears 6816397061 278294 H61.23 Otitis ext juanjose of bilateral ears 8450481278 210890 H60.93 [id number] Latonia Méndez MD [address] [facility] [address] [place] [address] 07/15/2024 08:10:33 07/15/2024 08:51:31 Impacted cerumen of bilateral ears 1316949459 801396 H61.23 o complicati ons, wax completely removed Health Concerns Section Related Observation LastModified by Organization Detai ls LastModified Time None Recorded Concern Status LastModified by Organization Details LastModified Time None Recorded Advance Directives Directive None Recorded Payers Encounter Date Sequence Insurance Name Policy Number Policy Youngblood Covered Member ID Youngblood Member ID Guarantor Name 03/23/2021 1 [place] [facility] [id number] Abel Cunningham [id number] Abel Cunningham 11/29/2021 1 [place] [id number] Abel Cunningham [id number] Abel Cunningham 12/09/2021 1 [place] [facility] [id number] Abel Cunningham [id number] Abel Cunningham 12/04/2022 1 [place] [id number] Abel Cunningham [id number] Abel Cunningham 07/15/2024 1 [place]MED[place]ARE [place]AC[place] PPO) [id number] Abel Cunningham [id number] Abel Cunningham 07/15/2024 2 [place] [employer] Abel Cunningham [id number] Abel Cunningham Notes Date Note Type Note Provider Name and Address Organization Details Recorded Time 3 text/html Ear problem UCReported bypatient.Notes:cerumen impaction bilateral ears .develop decrease hearing and pain. denies any fever or fever with chills. Sina Peterson NP [address] [place], [address], PA - [facility] 12/04/2022 18:02:24 text/html Ear problem UCReported bypatient.source of patient informationInformation obtained from patient Location:bilateral Quality:clogged;decreased hearing Severity:moderate Context:no sick contacts; no recent swimming/water in ear; no recent air travel Modifying Factors:does not hurt to lie on, or pull on ear; does not hurt to chew Latonia Méndez MD [address] [place], [address], PA [facility] 07/15/2024 10:20:23
== END 2025-01-18 10:25 | disposition home or self-care (01) ==
PROVIDERS: PCP Internal Medicine; Visit Provider Internal Medicine
DX: D64.9 Anemia, unspecified (principal); I10 Essential (primary) hypertension; E78.5 Hyperlipidemia, unspecified; Z00.00 Encounter for general adult medical examination without abnormal findings

== ENCOUNTER 2025-01-18 11:15 | Outpatient (REF) | payer MEDICARE, SELFPAY ==
--- NOTE | ~2025-01-18 | US_ITS ---
CLINICAL HISTORY: R10.9 - Unspecified abdominal pain US RENAL Comparison: None Findings: Right kidney measures 14.1 cm in length. Left kidney measures 14.3 cm in length. Normal cortical thickness and echotexture bilaterally. No hydronephrosis, shadowing calculus or cortical mass lesion. IMPRESSION: Unremarkable bilateral kidneys. This document has been electronically signed by: Kathie Wells DO on 01/20/2025 14:59:25
--- OUTSIDE RECORDS SUMMARY | 2025-01-18 13:48 | XMS_ITS | Clinical Summary ---
Author Organization [facility] Address [address] [place] [phone] Phone Care Team Providers Care Field Service Consultant Name Role Phone Physician, No Pcp Primary [...] PROCEDURE: HISTORICAL TONSILLECTOMY OTHER SURGICAL HISTORY PROCEDURE: [place] THORACOSCOPY W/LOBECTOMY SINGLE LOBE Medical History Medical [...] Info) Description 02/13/2025 7:15 AM EDT Appointment [facility] CT Scan [address] [place] [phone] 02/21/2025 2:30 PM EDT Office Visit Thoracic Surgery - [place] [address] [facility] [address] [place] [phone] Adelfo Borja PA [address] [address] Health Maintenance Due Date Last Done Comments [...] Documents on File Type Date Recorded Patient Seconds Handler Expl anation Health Care Decision (hx) 04/21/2022 AD SAVAGE DIRECTIVE Health Care Decision (hx) 04/21/2022 AD SAVAGE DIRECTIVE Health Care Decision (hx) 04/21/2022 AD SAVAGE DIRECTIVE Care Teams Field Service Consultant Relationship Specialty Start Date End Date Physician, No Pcp PCP - General 01/09/25
== END 2025-01-18 11:16 | disposition home or self-care (01) ==
LOC: HO.HMGCX 11:15
PROVIDERS: PCP Internal Medicine; Visit Provider Internal Medicine
DX: R10.9 Unspecified abdominal pain (principal); K42.9 Umbilical hernia without obstruction or gangrene; D64.9 Anemia, unspecified; I10 Essential (primary) hypertension; E78.5 Hyperlipidemia, unspecified
CPT/HCPCS: 76775; 99202; 99397

== ENCOUNTER → 2025-01-18 11:21 | Outpatient (BNV) | payer MEDICARE, SELFPAY | PROVIDERS: PCP Internal Medicine; Visit Provider Radiology Diagnostic Radiology | DX: R10.9 Unspecified abdominal pain (principal) | CPT/HCPCS: 76775 ==

== ENCOUNTER 2025-01-18 12:40 | Outpatient (AMB) | payer MEDICARE, SELFPAY ==
--- NOTE | 2025-01-18 12:53 | MHC.OFFVIS ---
Vital Signs 01/18/25 12:59 Height 6 ft 2 in Weight 235 lb 14.314 oz BMI 30.3 Respiration 18 Pulse 80 Intake Visit Reasons: Umbilical hernia Intake Note: Patient is seen in office for evaluation and treatment of an umbilical hernia. Pt c/o: onset 30 yrs, feels a lump belly button, reducible, discomfort once in a while, increase/decrease, denies n/v/d/c Media Services Director Required: No Accompanied by: Self / Same As Patient Allergies oxycodone [OXYCODONE] Allergy (Severe, Verified 01/18/25 12:58) SEVERE N/V Medication List - Last Reconciled 01/18/25 by Ricardo Navarrete MD amlodipine 5 mg PO DAILY atorvastatin 20 mg PO BEDTIME benazepril 10 mg PO DAILY finasteride 5 mg PO DAILY meclizine 25 mg PO TID PRN sildenafil 100 mg PO ONCE PRN 30 days tamsulosin 0.4 mg PO DAILY 90 days HPI Comments Details: 64-year-old male patient presenting for evaluation of an umbilical hernia. He reports the hernias been present for many years and has gradually increasing in size. He occasionally has some discomfort when the lump is palpated. He denies nausea, vomiting, fever, chills, diarrhea or constipation. He denies any previous surgery in this location. [facility] Medical History Diverticulosis Tubular adenoma Sleep apnea Carcinoid tumor of lung (~2021) Personal history of nicotine dependence Tubular adenoma of colon (~2018) Glaucoma Left shoulder tendinitis Umbilical hernia Hyperlipidemia HTN (hypertension) Surgical History History of lobectomy of lung (~2021) History of bronchoscopy (~2021) History of left hip replacement (~2015) History of nasal polypectomy (~2005) History of colonoscopy (~2019) History of tonsillectomy and adenoidectomy Family History Father Leukemia Mother Alzheimer's dementia Brother No problems noted. Brother No problems noted. Sister No problems noted. Sister No problems noted. Social History Household Members Other:: smokes 1/2 PPD Housing: Condominium Alcohol intake: current Alcohol intake frequency: a few times a week Patient Tobacco Use Status: Former Tobacco user Tobacco use type: Cigarette Cigarette Packs Per Day: 0.5 Cigarettes Per Day: 10 Years Smoked: 40 e-Cigarette/Vaping Use: Never Used service: No Current occupational status: employed Current occupational exposures/hazards: No Cognitive needs: No Hearing needs: No Vision needs: Yes Review of Systems Const All systems reviewed & are unremarkable except as noted in HPI and below Physical Exam Vital Signs: Last Vital Signs Pulse 80 01/18/25 12:59 Resp 18 01/18/25 12:59 BMI result Body Mass Index 30.3 Const General: cooperative and no acute distress Nutritional Appearance: well nourished Orientation/consciousness: patient oriented x3 Limitations: no limitations HEENT Head: Yes normocephalic and Yes atraumatic Ears: hearing grossly normal bilaterally Resp Effort & Inspection: normal respiratory effort, no audible wheezes, no cough and no respiratory distress Cardio Jugular venous distension: no JVD GI Other: Reducible umbilical hernia measuring approximately 3 cm in diameter. The hernia reduces with light pressure but returns while in the standing position. There is minimal tenderness to palpation. Inspection: Yes normal to inspection Abdomen image: 1. Palpable hernia at umbilicus Skin Other: Warm, dry, no rash Neuro General: patient oriented x3 Extrem General: Yes no clubbing, cyanosis or edema Assessment & Plan Assessment & Plan (1) Umbilical hernia: Code(s): K42.9 - Umbilical hernia without obstruction or gangrene Category: Medical Plan 64-year-old male patient presenting with an umbilical hernia which is easily reducible. I reviewed the procedure, risks and alternatives regarding repair of this umbilical hernia. He wishes to proceed with the surgery but we will call us when he is ready to schedule. He gives his consent for repair of the umbilical hernia with mesh. Coding Level of Care Code New Pt Level 4 (08944) Diagnoses Umbilical hernia K42.9
[2025-01-18 12:59] VITALS: PULSE 80; RESP 18; BMI 30.3
--- OUTSIDE RECORDS SUMMARY | 2025-01-18 15:17 | XMS_ITS | Clinical Summary ---
Author Organization [facility] Address [address] [place] [phone] Phone Care Team Providers Care Vice President Compliance Name Role Phone Physician, No Pcp Primary [...] PROCEDURE: HISTORICAL TONSILLECTOMY OTHER SURGICAL HISTORY PROCEDURE: [place] THORACOSCOPY W/LOBECTOMY SINGLE LOBE Medical History Medical [...] Info) Description 02/13/2025 7:15 AM EDT Appointment [facility] CT Scan [address] [place] [phone] 02/21/2025 2:30 PM EDT Office Visit Thoracic Surgery - [place] [address] [facility] [address] [place] [phone] Adelfo Borja PA [address] [address] Health Maintenance Due Date Last Done Comments [...] Documents on File Type Date Recorded Patient Train Control Electronic Technician Expl anation Health Care Decision (hx) 04/21/2022 AD SAVAGE DIRECTIVE Health Care Decision (hx) 04/21/2022 AD SAVAGE DIRECTIVE Health Care Decision (hx) 04/21/2022 AD SAVAGE DIRECTIVE Care Teams Vice President Compliance Relationship Specialty Start Date End Date Physician, No Pcp PCP - General 01/09/25
== END 2025-01-18 13:08 | disposition home or self-care (01) ==
PROVIDERS: PCP Internal Medicine; Referring Provider Internal Medicine; Visit Provider Surgery
DX: K42.9 Umbilical hernia without obstruction or gangrene (principal)
CPT/HCPCS: 99204

== ENCOUNTER 2025-02-23 15:16 | Outpatient (REF) | payer MEDICARE, SELFPAY ==
--- OUTSIDE RECORDS SUMMARY | 2025-02-23 15:19 | XMS_ITS | Data Portability ---
Author Organization [facility], [address] Address [address] [place] [address] Care Team Providers Care Manager Commission Name Role Phone CLARY PITTS Primary Care [...] drops, susp 023 12/04/19 23 [email or web address] [id number], [address] [facility] Jennifer Fletcher [place], [address], 4 08:19:26 Patient TargetsNo targets recorded. Patient Instructions Encounter Date Encounter Id Patient Instructions Last Modified By Organization Details Last Modified Time 12/04/2022 [id number] hearing loss: ca re instructions Not available [...] deeper into the ear canal. Remain still, pycr-wta-gdbo-down for about 15 minutes. 3. Keep the [...] about six inches from the ear. 4. Bbad-epy-drtxclw pain medications can relieve discomfort associated with external otitis. Acetaminophen (Tylenol), ibuprofen, or naproxen can be taken, depending on individual preference. 5. Return to the [facility] in about one week. The provider can [...] present kana Not available 12/04/2022 17:39:38 07/15/2024 [id number] earwax blockage: care instructions [email or web address] Not available 07/15/2024 08:40:20 Reason for Referral None Reported. Problems Name Problem SNOMED Code Status Onset Date Resolution Date Notes Provider Name and Address Organization Details Recorded Time Prostatitis 3967197 Active Meredith Whitewood null, PA - [facility] 4 08:20:28 Hypertensive disorder 26024725 Active 2022 Wendy Happy null, PA - [facility] 3 16:53:41 Hyperlipidemia 83839114 Active 2022 Wendy Happy null, PA - [facility] 3 16:53:46 Problem Notes None recorded. Procedures Surgical History Date Name Laterality Status Provider Name and Address Organization Details Recorded Time 4 Cerumen Removal by Irrigation completed Latonia Méndez MD [address] [place] [address] [place], [address], PA - [facility] 07/15/2024 10:19:51 3 Cerumen Removal by Irrigation completed Wendy Happy PA - [facility] 12/04/2022 17:55:01 operation on lung completed Wendy Sean PA - [facility] 12/04/2022 16:54:25 Imaging Results None recorded. Procedure Notes None recorded. Medical Equipment None Reported. Allergies Allergen ID Allergen Name Allergen Category Reaction Reaction Severity Criticality Documentation Date Start Date Code Code System Note Provider Name and Address Organization Details Recorded Time 701503 Substance with morphinan structure and opioid receptor agonist mechanism of action (substanc e) medicatio n abdominal pain Not available low 12/04/2022 85107 9000 SNOMED Wendy Sean null, PA - [...] DIRECTED BY GASTROENT EROLOGY DEPARTMEN T AT [facility] 07/15 completed Not Available Not Available Not [...] Updated DateTime 3 187.96 cm 27.6 kg/m2 63851.3 6 g 99 % 99 % 78 [...] Updated DateTime 4 187.96 cm 27.6 kg/m2 27809.3 6 g 0 97.2 [degF] 14 /min 100 % 100 % 66 /min 158 mm[Hg] 95 mm[Hg] Meredith Whitewood PA - [facility] 08:27:31 Social History [...] SNOMED-CT Code Diagnosis ICD10 Code Diagnosis Note [id number] [address] [facility] [place] [address] 11/29/2021 08:06:54 11/29/2021 09:17:52 [id number] [address] [place] [address] [place] [address] 12/09/2021 13:03:40 12/09/2021 14:46:38 [id number] [address] [place] [address] 10/04/2018 16:15:53 10/04/2018 18:33:33 [id number] [address] [facility] [place] [address] 01/20/2021 17:09:06 01/20/2021 18:52:23 [id number] [address] [facility] [place] [address] 10/05/2019 15:51:51 10/05/2019 17:14:02 [id number] [address] [facility] [place] [address] 03/23/2021 09:15:36 03/23/2021 09:34:24 [id number] [address] [place] [address] 02/09/2021 17:31:56 02/09/2021 18:40:24 [id number] Sina Peterson NP [address] [facility] [place] [address] 12/04/2022 15:48:29 12/04/2022 18:02:51 Impacted cerumen of bilateral ears [id number] 606838 H61.23 Otitis ext juanjose of bilateral ears 4773266055 583762 H60.93 [id number] Latonia Méndez MD [address] [facility] [address] [facility] [place] [address] 07/15/2024 08:10:33 07/15/2024 08:51:31 Impacted cerumen of bilateral ears 2420518732 899148 H61.23 o complicati ons, wax completely removed Health Concerns Section Related Observation LastModified by Organization Detai ls LastModified Time None Recorded Concern Status LastModified by Organization Details LastModified Time None Recorded Advance Directives Directive None Recorded Payers Encounter Date Sequence Insurance Name Policy Number Policy Youngblood Covered Member ID Youngblood Member ID Guarantor Name 03/23/2021 1 [place] ([facility] [id number] Abel Cunningham [id number] Abel Cunningham 11/29/2021 1 [place] [id number] Abel Cunningham [id number] Abel Cunningham 12/09/2021 1 [place] [id number] Abel Cunningham [id number] Abel Cunningham 12/04/2022 1 [place] [id number] Abel Cunningham [id number] Abel Cunningham 07/15/2024 1 [place]MEDICARE [place]ACEMENT PPO) [id number] Abel Cunningham [id number] Abel Cunningham 07/15/2024 2 [place] [employer] Abel Cunningham [id number] Abel Cunningham Notes Date Note Type Note Provider Name and Address Organization Details Recorded Time 3 text/html Ear problem UCReported bypatient.Notes:cerumen impaction bilateral ears .develop decrease hearing and pain. denies any fever or fever with chills. Sina Peterson NP [address] [place], [address], [place] - [facility] 12/04/2022 18:02:24 text/html Ear problem UCReported bypatient.source of patient informationInformation obtained from patient Location:bilateral Quality:clogged;decreased hearing Severity:moderate Context:no sick contacts; no recent swimming/water in ear; no recent air travel Modifying Factors:does not hurt to lie on, or pull on ear; does not hurt to chew Latonia Méndez MD [address] [place], [address], PA [facility] 07/15/2024 10:20:23
--- OUTSIDE RECORDS SUMMARY | 2025-02-23 15:19 | XMS_ITS | Encounter Summary ---
[facility] Address [address] [place] [address] Care Team Providers Care Liquefaction Supervisor Name Role Phone Stephanie Mcneal MD Primary Care Provider [phone] Reason for Visit * Reason Comments Follow-up Chest CT 02/13/25 Encounter Details Date Type Department Care Team (Late st Contact Info) Description 02/21/2025 2:30 PM EDT Office Visit Thoracic Surgery - [place] [address] [place] [phone] Adelfo Borja PA [address] Evangelista [address] [place] [address] Social History Tobacco Use Types Packs/Day Years Used Date Smoking Tobacco: Former Cigarettes Q uit: 04/19/2022 Sex and Gender Information Value Date Recorded Sex Assigned at Male 01/09/2025 8:12 AM EST Legal Sex Male 4:14 AM EST Gender Identity Male 01/09/2025 8:12 AM EST Sexual Orientation Straight 01/09/2025 8: 12 AM EST documented as of this encounter Last Filed Vital Signs Vital Sign Reading Time Taken Comments Blood Pressure 128/78 02/21/2025 2:28 PM EDT Pulse 80 02/21/2025 2:28 PM EDT Temperature 36.7 ??C (98.1 ??F) 02/21/2025 2:28 PM ED T Respiratory Rate 14 02/21/2025 2:28 PM EDT Oxygen Saturation 98% 02/21/2025 2:28 PM EDT Inhaled Oxygen Concentration - - Weight 108 kg (238 lb 6.4 oz) 02/21/2025 2:28 PM EDT Height 188 cm (6' 2 ) 02/21/2025 2:28 PM EDT Body Mass Index 30.61 02/21/2025 2:28 PM EDT documented in this encounter Plan of Treatment Not on file documented as of this encounter Visit Diagnoses Not on filedocumented in this encounter Care Teams Liquefaction Supervisor Relationship Specialty Start Date End Date Stephanie Mcneal MD [address] [place] [address] PCP - General Internal Medicine 02/21/25 documented as of this encounter
--- OUTSIDE RECORDS SUMMARY | 2025-02-23 15:19 | XMS_ITS | Clinical Summary ---
Author Organization [facility] Address [address] [place] [address] Phone Care Team Providers Care Group Marketing Vp Name Role Phone Stephanie Mcneal MD Primary Care Provider [phone] Allergies Active Allergy Reactions Criticality Noted Date [...] 05/04/2022 Hyperlipidemia 05/04/2022 Hypertension 05/04/2022 Osteoarthritis 05/04/2022 Encounters Date Type Department Care Team Description 02/21/2025 2:30 PM EDT Office Visit Thoracic Surgery - [place] [address] [facility] [address] [place] [address] Adelfo Borja PA 02/13/2025 6:35 AM EDT - 02/13/2025 11:59 PM EDT Hospital Encounter [facility] CT Scan [address] [place] [address] History of lung cancer Discharge Disposition: Home or Self Care from Last 3 Months Surgical History Surgery Date Site/Laterality Comments TONSILLECTOMY PROCEDURE: HISTORICAL TONSILLECTOMY OTHER SURGICAL HISTORY PROCEDURE: CA THORACOSCOPY W/LOBECTOMY SINGLE LOBE Medical History Medical History Date Comments Lung cancer (CMS/HCC V24, CMS/HCC V28) DX:Lung cancer (HCC); COMMENT: right lower lobe Family History Medical History Relation Name Comments Leukemia Father Alzheimer's disease Mother Relation Name Status Comments Father Mother Social History Tobacco Use Types Packs/Day Years [...] Mass Index 30.61 02/21/2025 2:28 PM EDT Plan of Treatment Health Maintenance Due Date Last Done Comments Pneumococcal Vaccine: 50+ Years (1 of 1 - PCV) 2009 Zoster Vaccines (1 of 2) 2009 Abdominal Aortic Aneurysm (AAA) Screen 10/18/2022 Cholesterol Screening (Lipid Panel) 10/18/2022 Colorectal Cancer Screening: Colonoscopy 10/18/2022 Depression Screening 10/18/2022 Hepatitis C Screening 10/18/2022 Medicare Annual Wellness Visit 10/18/2022 Social Influencers of Health Screening 10/18/2022 Hypertension/CHF/CAD Annual BMP Blood Test 10/31/2022 Falls Risk Assessment 2024 COVID-19 Vaccine (4 - 2023-2 5 season) 2024 11/22/2021, 03/20/2021, 02/19/2021 Influenza Vaccine (Season Ended) 2025 DTaP,Tdap,and Td Vaccines (2 - Td or Tdap) 09/16/2026 09/16/2016 RSV Immunization Adult Patients (1 - 1-dose 75+ series) 2034 HIB [...] age to complete this topic Meningococcal B Vaccine Aged Out No l onger eligible based on patient's age to complete this topic Pneumococcal Vaccine: Pediatrics (0 to 5 Years) and At-Risk Patients (6 to 64 Years) Aged Out No longer eligible b ased on patient's age to complete this topic RSV Immunization Patients Under 20 months Aged Out No longer eligible b ased on patient's age to complete this topic Varicella Vaccines Aged Out No longer eligible based on patient's age to complete this topic Procedures Procedure Name Priority Date/Time Associated Diagnosis Comments CT CHEST WO CONTRAST Routine 02/13/2025 7:09 AM EDT History of lung cancer from Last 3 Months Results * CT Chest wo Contrast (02/13/2025 7:09 AM EDT) Anatomical Region Laterality Modality Body Computed Tomogra phy 02/15/2025 8:56 AM EDT Impressions 02/15/2025 9:09 AM EDT No evidence of recurrent disease following right lower lobectomy. No new suspicious mass or nodule. Stable bilateral micronodules are likely postinflammatory. ?? No change in the ascending aorta which measures 4.9 cm. -------- FINAL REPORT -------- Dictated By: Britton Gamboa Dictated Date: 02/15/2025 08:56 ET Assigned Physician: Britton Gamboa Reviewed and Electronically Signed By: Britton Gamboa Signed Date: 02/15/2025 09:09 ET Workstation ID: [id number] Transcribed By: Self Edit Transcribed Date: 02/15/2025 08:56 ET Narrative 02/15/2025 9:09 AM EDT EXAMINATION: CT CHEST WITHOUT CONTRAST CLINICAL INFORMATION: Post right lower lobectomy. ??History of lung cancer. Evaluate for interval changes. COMPARISON: Portions of previous 01/21/24 ?? TECHNIQUE: Multidetector CT. Examination of the chest. Examination of the chest without IV contrast. Reformatting in the coronal and sagittal planes. DLP: 172 mGy-cm Dose optimization was performed including the use of low-dose iterative reconstruction technique with automatic exposure control based on patient size. Type of contrast: None Volume of IV contrast: None Volume of contrast discarded: 0 mL FINDINGS: LUNG: There is narrowing of the transverse diameter of the trachea. There are findings from right lower lobectomy. There is some narrowing at the origin of the middle lobe bronchus. There is no suspicious abnormality at the lobectomy stump. There are bilateral micronodules all of which measure less than 0.4 cm and are unchanged. Some are calcified. No new suspicious mass or nodule. I suspect underlying centrilobular emphysema. No acute pneumonia. ?? MEDIASTINUM: ??There are no enlarged mediastinal or hilar lymph nodes. No suspicious abnormality of the esophagus CARDIAC: The heart is not enlarged. No pericardial fluid or thickening ?? CORONARY CALCIFICATION: ??There are marked coronary calcifications. VASCULAR: The ascending thoracic aorta measures 4.9 cm. This is unchanged since 01/21/24. ?? PLEURA: There is no pleural fluid or pneumothorax ?? AXILLA/CHEST WALL: There are no enlarged axillary lymph nodes. No chest wall mass demonstrated ?? VISUALIZED UPPER ABDOMEN: ??No definite change in circumscribed low density liver lesions which may represent cysts. MUSCULOSKELETAL: No suspicious focal bony lesion. ??Extensive osteophytes in the spine. Procedure Note Britton Gamboa MD - 02/15/2025 EXAMINATION: CT CHEST WITHOUT CONTRAST CLINICAL INFORMATION: Post right lower lobectomy. History of lung cancer. Evaluate for intervalchanges. COMPARISON: Portions of previous 01/21/24 TECHNIQUE: Multidetector CT. Examination of the chest. Examination of the chest without IV contrast. Reformatting in the coronal and sagittal planes. DLP: 172 mGy-cm Dose optimization was performed including the use of low-dose iterativereconstruction technique with automatic exposure control based on patientsize. Type of contrast: None Volume of IV contrast: None Volume of contrast discarded: 0 mL FINDINGS: LUNG: There is narrowing of the transverse diameter of the trachea. Thereare findings from right lower lobectomy. There is some narrowing at theorigin of the middle lobe bronchus. There is no suspicious abnormality atthe lobectomy stump. There are bilateral micronodules all of which measure less than 0.4 cm andare unchanged. Some are calcified. No new suspicious mass or nodule. I suspect underlying centrilobular emphysema. No acute pneumonia. MEDIASTINUM: There are no enlarged mediastinal or hilar lymph nodes. Nosuspicious abnormality of the esophagus CARDIAC: The heart is not enlarged. No pericardial fluid or thickening CORONARY CALCIFICATION: There are marked coronary calcifications. VASCULAR: The ascending thoracic aorta measures 4.9 cm. This is unchangedsince 01/21/24. PLEURA: There is no pleural fluid or pneumothorax AXILLA/CHEST WALL: There are no enlarged axillary lymph nodes. No chestwall mass demonstrated VISUALIZED UPPER ABDOMEN: No definite change in circumscribed low densityliver lesions which may represent cysts. MUSCULOSKELETAL: No suspicious focal bony lesion. Extensive osteophytesin the spine. IMPRESSION: No evidence of recurrent disease following right lower lobectomy. No new suspicious mass or nodule. Stable bilateral micronodules are likely postinflammatory. No change in the ascending aorta which measures 4.9 cm. -------- FINAL REPORT -------- Dictated By: Britton Gamboa Dictated Date: 02/15/2025 08:56 ET Assigned Physician: Britton Gamboa Reviewed and Electronically Signed By: Britton Gamboa Signed Date: 02/15/2025 09:09 ET Workstation ID: [id number] Transcribed By: Self Edit Transcribed Date: 02/15/2025 08:56 ET us Mary Hamm MANAGER URGENT CARE IMG CT PROCEDURES Final Res ult from Last 3 Months Insurance [facility] MEDICARE ADVANTAGE Advance Directives Documents on File Type Date Recorded Patient Customer Management Specialist Expl anation Health Care Decision (hx) 04/21/2022 AD SAVAGE DIRECTIVE Health Care Decision (hx) 04/21/2022 AD SAVAGE DIRECTIVE Health Care Decision (hx) 04/21/2022 AD SAVAGE DIRECTIVE Care Teams Group Marketing Vp Relationship Specialty Start Date End Date Stephanie Mcneal MD [address] [place] [address] PCP - General Internal Medicine 02/21/25
[2025-02-23 15:28] LABS: MANUAL DIFF FLAG NO
[2025-02-23 15:38] LABS: Basophils Absolute Auto 0.1 X10*3/uL (0.0-0.2); Basophils Percent Auto 0.8 % (0-2); Eosinophils Absolute Auto 0.2 X10*3/uL (0.0-0.4); Eosinophils Percent Auto 2.7 % (0-4); Hematocrit 40.4 % (42.0-52.0); Hemoglobin 13.2 g/dl (14.0-18.0); Imm Gran Abs Auto 0.02 X10*3/uL (0.00-0.03); Imm Gran Pct Auto 0.3 % (0.0-0.4); Lymphocytes Absolute Auto 1.2 X10*3/uL (1.2-4.9); Lymphocytes Percent Auto 18.7 % (20-40); Mean Corpuscular HGB Conc 32.7 g/dl (31.0-36.0); Mean Corpuscular Hemoglobin 29.8 pg (27.0-33.0); Mean Corpuscular Volume 91.2 fL (80.0-98.0); Mean Platelet Volume 9.3 fL (9.4-12.4); Monocytes Absolute Auto 0.6 X10*3/uL (0.1-1.2); Monocytes Percent Auto 9.3 % (2-11); Neutrophils Absolute Auto 4.3 x10*3/uL (2.0-8.3); Neutrophils Percent Auto 68.2 % (45-73); Platelet Count 233 X10*3/uL (160-400); Red Blood Count 4.43 X10*6/uL (4.60-5.80); Red Cell Distribution Width 12.5 % (11.0-16.0); White Blood Count 6.3 X10*3/uL (4.8-10.8)
[2025-02-23 15:59] LABS: Iron 102 mcg/dL (45-160); Percent Iron Saturation 38 % (15-50); Total Iron Binding Capacity 268 mcg/dL (228-428); Unsaturated Iron Binding 166 ug/dL
[2025-02-23 16:41] LABS: Folate 14.4 ng/mL (> or = 4.0); Vitamin B12 894 pg/mL (200-900)
== END 2025-02-23 15:17 | disposition home or self-care (01) ==
LOC: HO.LAB 15:16
PROVIDERS: PCP Internal Medicine; Visit Provider Internal Medicine
DX: D64.9 Anemia, unspecified (principal)
CPT/HCPCS: 36415; 82607; 82746; 83540; 85025

== ENCOUNTER 2025-08-23 08:12 | Outpatient (AMB) | payer MEDICARE, SELFPAY ==
--- NOTE | 2025-08-23 08:33 | MHC.OFFVIS ---
Intake Visit Reasons: 1y/PVR Intake Note: Patient is present for 1y/PVR Urology Med: Tamsulosin Antibiotic Allergy: None Blood Thinner: None PVR: 21ml Assembler Installer General Required: No Accompanied by: Self / Same As Patient Allergies oxycodone (OXYCODONE) Allergy (Severe, Verified 08/23/25 08:40) SEVERE N/V HPI Comments Details: Abel is a very pleasant male. He is a patient Dr. Rae. He is seen for following urologic conditions - lower urinary tract symptoms - erectile dysfunction Yearly review. PVR 20 Continue with tamsulosin Situational ED Has issues when not enough sleep Medication provided PCP recently had prescribed finasteride. We discussed that his PSA is less than 2.5 so finasteride would not normally be indicated. Did discuss strength of stream and emptying. We will review in six-month with uroflow Lower urinary tract symptoms ? Current visit is for further evaluation of, lower urinary tract symptoms, predominate obstructive symptoms. ? Current treatment includes? medication - tamsulosin ? Prostate Symptom Score 2/18 , Moderate (9-19), Moderate (9-19) ?3/ , Mild (0-8), Bother 2. ? Symptoms include / , incomplete emptying, weak stream, nocturia (>2), and are progressing ?01/30 , incomplete emptying, weak stream, and are improving - longer time to urinate. ? PSA 08/03 0.9, 08/05 0.9, 08/06 0.8, 01/09 0.8 ? Prostate volume 30-50gm. ? Testing at next visit will include bladder scan?? [facility] Medical History (Updated 08/23/25 @ 08:51 by Williams Reina MD) BPH associated with nocturia Diverticulosis Tubular adenoma Sleep apnea Carcinoid tumor of lung (~2021) Personal history of nicotine dependence Tubular adenoma of colon (~2018) Glaucoma Left shoulder tendinitis Umbilical hernia Hyperlipidemia HTN (hypertension) Surgical History History of lobectomy of lung (~2021) History of bronchoscopy (~2021) History of left hip replacement (~2015) History of nasal polypectomy (~2005) History of colonoscopy (~2019) History of tonsillectomy and adenoidectomy Family History Father Leukemia Mother Alzheimer's dementia Brother No problems noted. Brother No problems noted. Sister No problems noted. Sister No problems noted. Social History Household Members Other:: smokes 1/2 PPD Housing: Condominium Alcohol intake: current Alcohol intake frequency: a few times a week Patient Tobacco Use Status: Former Tobacco user Tobacco use type: Cigarette Cigarette Packs Per Day: 0.5 Cigarettes Per Day: 10 Years Smoked: 40 e-Cigarette/Vaping Use: Never Used service: No Current occupational status: employed Current occupational exposures/hazards: No Cognitive needs: No Hearing needs: No Vision needs: Yes Review of Systems Const Denies chills and Denies fever(s) Card Reports no additional complaints and Denies syncope Resp Denies cough GI Denies abdominal pain and Denies heartburn Reports as per HPI and Denies change in libido Neuro Denies syncope Psych Denies change in libido Endo Denies change in libido Physical Exam Const General: cooperative, healthy appearing, comfortable and no acute distress Orientation/consciousness: patient oriented x3 HEENT Face and sinus: Yes normal facial exam Mouth: moist mucous membranes Neck Neck: Yes normal visual inspection, Yes full ROM and Yes trachea midline Chest Chest palpation & inspection: normal inspection of the chest Resp Effort & Inspection: normal respiratory effort, able to speak in complete sentences and no respiratory distress GI Inspection: Yes normal to inspection Back/Spine/Pelvis Cervical Spine: normal cervical lordosis Thoracic/Lumbar Spine: thoracic and lumbar spine normal to inspection Skin General skin exam: no rashes or lesions noted Neuro General: patient oriented x3, gait normal, tone normal and moves all extremities Extrem General: Yes normal to inspection and Yes capillary refill normal Assessment & Plan Assessment & Plan (1) Erectile dysfunction due to arterial insufficiency: Code(s): N52.01 - Erectile dysfunction due to arterial insufficiency Category: Medical (2) Weak urinary stream: Code(s): R39.12 - Poor urinary stream Category: Medical (3) Bladder outlet obstruction: Code(s): N32.0 - Bladder-neck obstruction Category: Medical Plan Six-month follow-up bladder ultrasound ureteral Orders: Orders US bladder 6 Months N40.1 - Benign prostatic hyperplasia with lower urinary tract symptoms, R35.1 - Nocturia Medications: Changed From tamsulosin 0.4 mg PO DAILY 90 days 90 caps 3RF N40.1 - Benign prostatic hyperplasia with lower urinary tract symptoms, R35.1 - Nocturia To tamsulosin 0.4 mg PO BEDTIME 90 caps 3RF 90 days N40.1 - Benign prostatic hyperplasia with lower urinary tract symptoms, R35.1 - Nocturia Patient Instructions: This note is constructed using voice recognition software. While every effort has been made to ensure accuracy technical system analyst errors may have been included. Imaging studies, laboratory and physical exam results were discussed and reviewed in detail. No major barriers to patient understanding were identified. An opportunity to ask questions regarding the treatment plan was provided. All questions were answered. The patient expressed understanding and agreement with the above treatment plan. The patient is aware they should contact our office by phone for worsening of their current condition or the appearance of new urologic symptoms. Compliance is encouraged with any medications and followup testing that is ordered. It is a privilege to participate in the urologic care of your patient. If you have any questions or concerns regarding treatment for the above conditions, or other urologic issues, please do not hesitate to contact me. The office telephone contact is [phone]. Sincerely, Dr Williams Reina MD, [facility] - Urology Compassionate Specialist Care for the Genitourinary System Coding Level of Care Code Est Pt Level 4 (57386) Complex EM visit Add On G2211 Diagnoses Erectile dysfunction due to arterial insufficiency N52.01 Weak urinary stream R39.12 Bladder outlet obstruction N32.0
== END 2025-08-23 08:54 | disposition home or self-care (01) ==
LOC: HO.HUSH 08:13
PROVIDERS: PCP Internal Medicine; Visit Provider Urology
DX: N52.01 Erectile dysfunction due to arterial insufficiency (principal); R39.12 Poor urinary stream; N32.0 Bladder-neck obstruction
CPT/HCPCS: 99214; G2211

== ENCOUNTER 2025-08-23 08:12 | Outpatient (REF) | payer MEDICARE, SELFPAY ==
[2025-08-23 09:13] LABS: MANUAL DIFF FLAG NO
[2025-08-23 09:39] LABS: Hematocrit 43.5 % (42.0-52.0); Hemoglobin 14.2 g/dl (14.0-18.0); Imm Gran Abs Auto 0.01 X10*3/uL (0.00-0.03); Imm Gran Pct Auto 0.2 % (0.0-0.4); Lymphocytes Absolute Auto 1.1 X10*3/uL (1.2-4.9); Mean Corpuscular HGB Conc 32.6 g/dl (31.0-36.0); Mean Corpuscular Hemoglobin 29.9 pg (27.0-33.0); Mean Corpuscular Volume 91.6 fL (80.0-98.0); NRBC Abs Auto 0.000 X10*3/uL (0.0-0.012); NRBC Pct Auto 0.0 /100WBC (0.0-0.2); Platelet Count 232 X10*3/uL (160-400); Red Blood Count 4.75 X10*6/uL (4.60-5.80); White Blood Count 4.9 X10*3/uL (4.8-10.8)
== END 2025-08-23 08:13 | disposition home or self-care (01) ==
LOC: HO.LAB 08:12
PROVIDERS: PCP Internal Medicine; Visit Provider Urology
DX: N52.01 Erectile dysfunction due to arterial insufficiency (principal); N32.0 Bladder-neck obstruction; N40.1 Benign prostatic hyperplasia with lower urinary tract symptoms; R35.1 Nocturia; D64.9 Anemia, unspecified; Z79.899 Other long term (current) drug therapy
CPT/HCPCS: 36415; 51798; 81003; 85025; 99212